=== PATIENT | male | born 1945 | race Caucasian/White ===

== ENCOUNTER 2017-01-04 11:06 | Outpatient (CLI) | payer BC, MEDICARE ==
[~2017-01-04] VITALS: Ht 182.9 cm; Wt 109.1 kg
--- NOTE | ~2017-01-04 | HEMODYNAMI ---
PATIENT:SHERON JAIMES MEDICAL RECORD: [id number] : 47 LOCATION:[facility] ADMISSION DATE: 01/04/17 Generatedon:01/04/201713:41 Patient name: SHERON JAIMES Patient #: [id number] SSN: : 1945 Date of study: 01/04/2017 Page: Of Hemodynamic Procedure Report Patient Data Patient Demographics Procedure consent was obtained First Name: SHERON Gender: Male Last Name: FIONA : 1945 [facility] Initial: SARAN Age: 71 year(s) Patient #: [id number] Race: SSN: [id number] Additional ID: [id number] Contact details Address: [address] State: [place] City: [place] Zip code: [address] Past Medical History Allergies: No known allergies Admission Admission Data Admission Date: 01/04/2017 Admission Time: 11:06 Arrival Date: 01/04/2017 Arrival Time: 0:00 Admit Source: Other Insurance Payor: Medicare, Private health insurance Height (in.): 72 BSA: 2.31 (m2) Height (cm.): 182.88 BMI: 32.82 (kg/m2) Weight (lbs.): 242 Weight (kg.): 109.77 Lab Results Lab Result Date: 01/04/2017 Lab Result Time: 0:00 Biochemistry Name Units Result Min Max BUN mg/dl 16 --(---*)-- 7 18 Creatinine mg/dl 0.9 --(-*--)-- 0.6 1.3 CBC Name Units Result Min Max Hemoglobin g/dl 15.5 --(-*--)-- 13.5 17.5 Procedure Procedure Types Cath Procedure Diagnostic Procedure LHC LHC w/Coronaries Miscellaneous Procedures Moderate Sedation up to 30 minutes Procedure Description Procedure Date Procedure Date: 01/04/2017 Procedure Start Time: 13:19 Procedure End Time: 13:37 Procedure Staff Name Function Hardik Alvarez MD Performing Physician Nikolas Kerr RT Scrub Evelin Abbasi RN Nurse Israel Maya RT Machine Stapler Silvana Argueta RT Monitor Procedure Data Cath Procedure Fluoroscopy Diagnostic fluoroscopy Total fluoroscopy Time: 7.8 time: 7.8 min min Diagnostic fluoroscopy Total fluoroscopy dose: dose: 434.29 mGy 434.29 mGy Contrast Material Contrast Material Type Amount (ml) Isovue 300 102 Entry Location Entry Primary Successful Side Size Upsize Upsize Entry Closure Srinivasan ccessful Closure Location (Fr) 1 (Fr) 2 (Fr) Remarks Device Remarks Radial Right 6 Fr Mechanical artery Short Compression Estimated blood loss: 5 ml Diagnostic catheters Device Type Used For End Catheter Placement Terumo 5Fr Goyo 110cm Procedure catheter Cordis Infinity 5Fr AR Procedure MOD Catheter Cordis Infinity 5Fr AL 1 Procedure catheter Procedure Complications No complications Procedure Medications Medication Administration Route Dosage Oxygen NC 2 l/min Radial Cocktail added to field 1 syringe (Verapomil 2mg/Nitro 400mcg/Heparin 1500units) Heparin Flush Bag added to field 2 bags (1000units/500ml NS) Lidocaine 2% added to field 20 Versed I.V. 1 mg Fentanyl I.V. 50 mcg Versed I.V. 1 mg Fentanyl I.V. 50 mcg Fentanyl I.V. 50 mcg Fentanyl I.V. 50 mcg Radial Cocktail I.A. 1 syringe (Verapomil 2mg/Nitro 400mcg/Heparin 1500units) Hemodynamics Rest BSA: 2.31 (m2) HGB: 15.5 (g/dl) O2 Consumption: Estimated: 252.35 (ml/min) O2 Co nsumption indexed: Estimated:109.24 (ml/min/m) Heart Rate: 53 (bpm) Pressure Samples Time Site Value (mmHg) Purpose Heart Use Rate(bpm) 13:22 LV 99/-4,2 Snapshot 53 Gradients Valve Time Site Site Mean SEP/DFP Peak To Heart Use 1 2 (mmHg) (sec/min) Peak Rate (mmHg) (bpm) Aortic 13:23 LV AO 59 Snapshots Pre Cath Intra NCS Post Cath Vital Signs Time Heart Resp SPO2 NIBP (mmHg) Rhythm Pain Sedation Rate (ipm) (%) Status Level (bpm) 13:05:31 53 18 98 162/89(133) SB 0 (11) 10(A) , No pain 13:10:05 52 15 98 161/84(132) SB 0 (11) 10(A) , No pain 13:14:30 54 15 94 148/82(117) SB 0 (11) 10(A) , No pain 13:18:52 51 13 95 130/69(100) SB 0 (11) 10(A) , No pain 13:23:16 64 14 95 112/50(78) SB 0 (11) 9(A) , No pain 13:27:34 51 15 95 125/66(96) SB 0 (11) 9(A) , No pain 13:31:58 50 15 96 130/64(107) SB 0 (11) 9(A) , No pain 13:36:57 49 16 96 Measuring SB 0 (11) 9(A) , No pain 13:37:04 49 16 98 139/74(107) SB 0 (11) 9(A) , No pain Medications Time Medication Route Dose Verified Delivered Reason Notes Effectiveness by by 13:04:16 Oxygen NC 2 l/min Hardik Evelin Per Antonio Abbasi RN physician 13:04:47 Radial Cocktail added 1 Hardik Hardik used for (Verapomil to syringe Antonio Alvarez MD procedure 2mg/Nitro field 400mcg/Heparin 1500units) 13:04:54 Heparin Flush added 2 bags Hardik Hardik used for Bag to Antonio Alvarez MD procedure (1000units/500ml field NS) 13:05:00 Lidocaine 2% added 20ml Hardik Hardik used for to vial Antonio Alvarez MD procedure field 13:11:24 Versed I.V. 1 mg Hardik Evelin for sedation Antonio Abbasi RN 13:11:30 Fentanyl I.V. 50 mcg Hardik Evelin for sedation Antonio Abbasi RN 13:13:23 Versed I.V. 1 mg Hardik Evelin for sedation Antonio Abbasi RN 13:13:27 Fentanyl I.V. 50 mcg Hardik Evelin for sedation Antonio Abbasi RN 13:16:12 Fentanyl I.V. 50 mcg Hardik Evelin for sedation Antonio Abbasi RN 13:19:26 Fentanyl I.V. 50 mcg Hardik Evelin for sedation Antonio Abbasi RN 13:20:37 Radial Cocktail I.A. 1 Hardik Hardik for (Verapomil syringe Antonio Alvarez MD vasodilation 2mg/Nitro 400mcg/Heparin 1500units) Procedure Log Time Note 12:49:19 Arrival Date: 01/04/2017 12:00:00 AM 12:49:21 Admit Source: Other 12:49:26 Patient Height : 182.88 inches 12:49:50 Patient Weight : 109.77 lbs 12:50:00 Insurance Payor : Private health insurance, Medicare 12:50:16 Procedure type changed to Cath procedure, Diagnostic procedure, LHC, LHC w/Coronaries, Miscellaneous Procedures, Moderate Sedation up to 30 minutes 12:50:21 Diagnostic Cath Status : Elective 12:51:01 Israel DODGE(R) sent for patient. Start room use. 12:51:02 Time tracking: Regular hours 12:51:07 Plan of Care:Hemodynamics will remain stable., Cardiac rhythm will remain stable., Comfort level will be maintained., Respiratory function will remain adequate., Patient/ family verbilizes understanding of procedure., Procedure tolerated without complication., Recovers from procedure without complications.. 12:51:21 Patient received from Outpatients to [facility] Alert and oriented. Tansferred to table in Supine position. 12:51:22 Warm blankets applied, and michelle hugger turned on for patient comfort. 12:51:23 Correct patient and procedure confirmed by team. 12:51:26 Signed procedure consent form obtained from patient. 12:51:45 H&P Date Dictated: 12/29/2016 Within 30 days and on chart., H&P Addendum completed by physician on day of procedure. (MUST COMPLETE FOR ALL OUTPATIENTS). 12:51:47 Pre-procedure instructions explained to patient. 12:51:49 Family in waiting room. 12:51:51 Patient NPO since Midnight. 12:52:00 Patient allergic to No known allergies 12:52:07 Is the patient allergic to Iodine/contrast media? No. 12:52:28 Is patient on blood thinner?Yes 12:52:31 ACC The patient was administered the following blood thiners within the last 24 hours: ACCAspirin 12:52:33 Patient diabetic? No. 12:55:19 Snore? Yes 12:55:21 Sleep apnea? No 12:55:22 Deviated septum? No 12:55:23 Opens mouth fully? Yes 12:55:24 Sticks out tongue? Yes 12:55:30 Dentures? No ? 12:55:36 Patient pain scale 0/10 ?. 12:55:45 IV patent on arrival in right hand with 0.9% NaCl at [facility]. 13:04:06 Vital chart was started 13:04:16 Oxygen 2 l/min NC was given by Evelin Abbasi RN; Per physician; 13:04:47 Radial Cocktail (Verapomil 2mg/Nitro 400mcg/Heparin 1500units) 1 syringe added to field was given by Hardik Alvarez MD; used for procedure; 13:04:54 Heparin Flush Bag (1000units/500ml NS) 2 bags added to field was given by Hardik Alvarez MD; used for procedure; 13:05:00 Lidocaine 2% 20ml vial added to field was given by Hardik Alvarez MD; used for procedure; 13:08:59 Lab Result : BUN 16 mg/dl 13:08:59 Lab Result : Creatinine 0.9 mg/dl 13:08:59 Lab Result : Hemoglobin 15.5 g/dl 13:09:05 Lab results completed and on chart. 13:09:07 Right Radial & Right Groin area was prepped with chlora-prep and draped in sterile fashion 13:09:09 Alarms reviewed by R. N. 13:09:09 Sharps counted by scrub and verified by R.N. 13:11:01 --------ALL STOP TIME OUT------ 13:11:02 Final Timeout: patient, procedure, and site verified with staff and physician. All members of the team are in agreement. 13:11:03 Right Radial & Right Groin site verified by team. 13:11:08 Physical assessment completed. ASA score P 2 - A patient with mild systemic disease as per Hardik Alvarez MD. 13:11:14 Sedation plan: IV Moderate Sedation Versed, Fentanyl 13:11:17 Use device set Radial Dx 13:11:19 Acist Syringe opened to sterile field. 13:11:19 Medline Cath Pack opened to sterile field. 13:11:19 Bag Decanter opened to sterile field. 13:11:20 Terumo 6Fr Slender Glidesheath opened to sterile field. 13:11:20 St Frederic 260cm J .035 wire opened to sterile field. 13:11:21 Acist Hand Control opened to sterile field. 13:11:21 Acist Manifold opened to sterile field. 13:11:24 Versed 1 mg I.V. was given by Evelin Abbasi RN; for sedation; 13:11:30 Fentanyl 50 mcg I.V. was given by Evelin Abbasi RN; for sedation; 13:12:40 Baseline sample Acquired. 13:12:43 ACC Patient presents with Stable Angina CCS Anginal Class 2--Slight limitation of ordinary activity. 13:12:52 Rhythm: sinus rhythm 13:12:54 Full Disclosure recording started 13:12:59 Previous problem with sedation/anesthesia? No ? 13:13:23 Versed 1 mg I.V. was given by Evelin Abbasi RN; for sedation; 13:13:27 Fentanyl 50 mcg I.V. was given by Evelin Abbasi RN; for sedation; 13:16:12 Fentanyl 50 mcg I.V. was given by Evelin Abbasi RN; for sedation; 13:16:25 Cook 21G 4cm Radial Needle opened to sterile field. 13:18:34 Zero performed for pressure channel P1 13:19:03 Procedure started. 13:19:06 Local anesthetic to right radial artery with Lidocaine 2% by Hardik Alvarez MD.INITIAL ACCESS ONLY 13:19:16 Zero performed for pressure channel P1 13:19:26 Fentanyl 50 mcg I.V. was given by Evelin Abbasi RN; for sedation; 13:20:09 A 6 Fr Short sheath was inserted into the Right Radial artery 13:20:37 Radial Cocktail (Verapomil 2mg/Nitro 400mcg/Heparin 1500units) 1 syringe I.A. was given by Hardik Alvarez MD; for vasodilation; 13:20:38 A Terumo 5Fr Goyo 110cm catheter was advanced over the wire and used for Procedure. 13:22:51 LV gram done using EMMANUEL 13:22:53 LV hemodynamics recorded. 13:22:56 Injector settings: Ml/sec: 5, Volume: 15, 13:23:14 EF : 60 % 13:23:44 LCA angiography performed. 13:26:29 Catheter exchanged over wire. 13:26:35 A Cordis Infinity 5Fr AR MOD Catheter was advanced over the wire and used for Procedure. 13:28:49 RCA angiography performed. 13:29:02 Catheter exchanged over wire. 13:30:03 A Cordis Infinity 5Fr AL 1 catheter was advanced over the wire and used for Procedure. 13:30:52 Using the AL 1 to try and get a better veiw of the RCA. 13:31:41 Catheter removed. unable to cannulate vessel. 13:32:31 Medtronic Launcher 5Fr AR 2.0 guide catheter opened to sterile field. 13:33:03 Using the AR 2 to better visualize the RCA. 13:33:07 RCA angiography performed. 13:34:41 Catheter removed. 13:35:06 Terumo TR Band Standard opened to sterile field. 13:35:17 Sheath removed intact; hemostasis achieved with Mechanical Compression to the Right Radial artery. 13:35:19 Procedure ended.(Physican Out) 13:35:30 Fluoroscopy time 07.80 minutes. 13:35:40 Fluoroscopy dose: 434.29 mGy 13:35:40 Flurop Dose total: 434.29 13:35:43 Contrast amount:Isovue 300 102ml. 13:35:45 Sharps counted by scrub and verified by R.N. 13:35:50 TR band inflated with 12cc of air. 13:35:51 Insertion/operative site no bleeding no hematoma. 13:35:59 Post right radial artery:stable, soft, clean and dry 13:36:01 Post Procedure Pulses reassessed and unchanged 13:36:03 Post-procedure physical assessment completed. ASA score P 2 - A patient with mild systemic disease as per Hardik Alvarez MD. 13:36:05 Post procedure rhythm: unchanged. 13:36:09 Estimated blood loss: 5 ml 13:36:11 Post procedure instruction explained to patient.Patient verbalizes understanding. 13:36:11 Patient needs reinforcement of post procedure teaching. 13:36:51 Procedure and supply charges have been captured, reviewed, submitted and are correct. 13:36:54 Procedure Complication : No complications 13:37:33 Vital chart was stopped 13:37:35 See physician's report for complete and final results. 13:37:37 Report given to Pre/Post Procedure Room. 13:37:40 Patient transfered to Pre/Post Procedure Room with Stretcher. 13:37:45 Procedure ended. 13:37:45 Full Disclosure recording stopped 13:38:16 LV Function : Normal 13:38:20 EF : 60 % 13:38:25 End room use (Document Last) Device Usage Item Name Manufacture Quantity Catalog Hospital Part Current Minimal Lot# / Number Charge Number Stock Stock Serial# Code Acist Acist 1 29671 [id number] 338260 748484 20 Syringe Medical Systems Inc Medline Cardinal 1 [id number] 011584 53020 355204 5 Cath Pack Health Bag Microtek 1 2002S [id number] 15877 516188 5 Decanter Medical Inc. Terumo 6Fr Terumo 1 [id number] 571553 948918 234002 [address] Frederic 1 568651 204679 939729 620371 30 260cm J .035 wire Acist Hand Acist 1 47267 011187 219031 418984 5 Control Medical Systems Inc Acist Acist 1 90114 082436 842853 347704 5 Manifold Medical Systems Inc Cook 21G Cook Medical 1 [id number] 545310 269844 5 4cm Radial Needle Terumo 5Fr Terumo 1 40-8775 045832 936460 073495 5 Goyo 110cm catheter Cordis Cardinal 1 [id number] 821738 259311 505378 15 Infinity Health 5Fr AR MOD Catheter Cordis Cardinal 1 [id number] 347058 652598 811028 15 Infinity Health 5Fr AL 1 catheter Medtronic Medtronic 1 [id number] 192345 985920 176844 1 Launcher 5Fr AR 2.0 guide catheter Terumo TR Terumo 1 [id number] 775811 163740 999817 40 Band Standard Signature Audit [place] Stage Time Signature Unsigned Intra-Procedure 01/04/2017 Nikolas Kerr 1:41:18 PM RT(R) Signatures Monitor : Silvana Argueta Signature : RT Date : Time : [facility] [address] [place] [address]
[~2017-01-04 11:06] MED LIST: ASPIRIN EC81 M1 PO; BYSTOLIC5 MG PO; CARDIZEM CD240 MG PO; CLARITIN 10 MG10 MG PO; HYZAAR 100-25 T1 TAB PO; KLOR-CON 1010 MEQ PO; PLAVIX75 MG PO; PRILOSEC20 MG PO
[2017-01-04] MEDS ORDERED: BYSTOLIC10 MG PO (11:51)
[2017-01-04 11:56] VITALS: BP 152/69; Ht 182.9 cm; Wt 109.1 kg
[2017-01-04 12:02] LABS: BASOPHILS 0.5 % (0.0-2.0); EOSINOPHILS 4.1 % (0-7); HEMATOCRIT 43.3 % (42.0-54.0); HEMOGLOBIN 15.5 g/dL (13.5-17.5); IMMATURE GRANULOCYTES 0.3 % (0-5); MCH 32.8 pg (26.0-34.0); MCHC 35.8 g/dL (31.0-37.0); MCV 91.5 fL (80.0-100.0); MONOCYTES 12.7 % (2-11); NEUTROPHILS 49.4 % (40-80); PLATELET COUNT 132 10x3/uL (130-400); RBC 4.73 10x6/uL (4.20-6.10); RDW 12.4 % (11.5-14.5); WBC 6.6 10x3/uL (4.8-10.8)
[2017-01-04 12:14] LABS: CALC OSMOLALITY 273 mosm/kg (275-300); CALCIUM 8.9 mg/dL (8.5-10.1); CHLORIDE - SERUM 99 mmol/L (98-107); CREATININE - SERUM 0.9 mg/dL (0.6-1.3); GLUCOSE 116 mg/dL (74-106); POTASSIUM - SERUM 4.1 mmol/L (3.5-5.1); SODIUM 136 mmol/L (136-145); UREA NITROGEN 16 mg/dL (7-18); eGFR NON AFRICAN AMERICAN 89 mL/min (90-120)
--- NOTE | 2017-01-04 16:46 | NUR ---
1405- TR BAND INTACT 1435- TR BAND REMAINS UNCHANGED
--- NOTE | 2017-02-08 08:17 | OP ---
PATIENT NAME: SHERON JAIMES MEDICAL RECORD: [id number] :47 LOCATION:D.CAT ADMISSION DATE: SURGEON: IMMANUEL HASSAN M.D. DATE OF OPERATION: 01/04/2017 Catheterization Report REFERRING PHYSICIAN: Dr. Jen Pruitt. PROCEDURES PERFORMED: 1. Selective coronary angiography. 2. Left heart catheterization with ventriculogram. INDICATION: A 71-year-old gentleman with history of multivessel coronary artery disease presents with recurrent angina. EQUIPMENT USED: A 5-Frisian Goyo catheter, AR2 catheter. TECHNIQUE: A 6-Frisian sheath was inserted in retrograde fashion in the right radial artery. Next, selective coronary angiography was performed in standard view using 5-Frisian Goyo catheter and AR2 catheters. Left heart catheterization was performed using the Goyo catheter. CORONARY ANATOMY: 1. Left main: Left main trunk is moderate in caliber. It gives rise to the LAD and circumflex. There is no obstruction. 2. LAD: This is a moderate caliber vessel extending to the apex. The mid vessel has been stented. The stent is widely patent. There are mild irregularities noted throughout the LAD, but nothing worse than 30%. 3. Circumflex: This vessel is moderate in caliber. The first lateral branch has been stented. Stents are widely patent. Random vessel has mild irregularities, but again nothing worse than 30%. 4. Right coronary: This vessel is moderate in caliber and dominant. The distal vessel demonstrates a smooth 30% stenosis before the bifurcation. 5. Left ventricle: Left ventricle is normal in size and function. No wall motion abnormalities are seen. Estimated ejection fraction is 60%. IMPRESSION: 1. Patent stents in the circumflex and LAD without evidence of restenosis. 2. Normal LV function. RECOMMENDATIONS: I may consider a Cardiolite stress test. This patient is having classes of angina, but there does not appear to be any significant stenosis noted on today's angiogram. TRANSINT:[id number] Voice Confirmation ID: [id number] DOCUMENT ID: [id number] OPERATIVE REPORT [id number] SHERON JAIMES IMMANUEL HASSAN M.D. at 0817 CC: [id number] DICTATION DATE: 01/04/17 1341 MARINE DIESEL MECHANIC: 01/04/171937 DEP CLI 01/04/17 [facility] [address] [id number]
== END 2017-01-04 16:20 | disposition home or self-care (01) ==
LOC: D.CATH 11:06
PROVIDERS: Internal Medicine Cardiovascular Disease
DX: I25.119 Atherosclerotic heart disease of native coronary artery with unspecified angina pectoris (principal); Z95.5 Presence of coronary angioplasty implant and graft

== ENCOUNTER → 2019-04-06 08:09 | Outpatient (CLI) | payer MEDICARE, BC ==
[2017-01-04 11:56] VITALS: BMI 32.6
[~2019-04-06 08:09] MED LIST changes: +BYSTOLIC10 MG PO
== END | disposition home or self-care (01) ==
LOC: D.HCCARDIO 08:09
PROVIDERS: ATTEND Internal Medicine Cardiovascular Disease
DX: I25.119 Atherosclerotic heart disease of native coronary artery with unspecified angina pectoris (principal)

== ENCOUNTER 2019-04-26 06:04 | Outpatient (CLI) | payer BC, MEDICARE ==
[~2019-04-26] VITALS: Ht 182.9 cm; Wt 105.9 kg
--- NOTE | ~2019-04-26 | HEMODYNAMI ---
PATIENT:SHERON JAIMES MEDICAL RECORD: [id number] : 47 LOCATION:[facility] ADMISSION DATE: 04/26/19 Generatedon:04/26/20198:35 Patient name: SHERON JAIMES Patient #: [id number] SSN: : 1945 Date of study: 04/26/2019 Page: Of Hemodynamic Procedure Report Patient Data Patient Demographics Procedure consent was obtained First Name: SHERON Gender: Male Last Name: FIONA : 1945 [facility] Initial: SARAN Age: 73 year(s) Patient #: [id number] Race: SSN: [id number] Additional ID: [id number] Contact details Address: [address] State: [place] City: [place] Zip code: [address] Past Medical History Allergies: No known allergies Admission Admission Data Admission Date: 04/26/2019 Admission Time: 6:04 Procedure Procedure Types Cath Procedure Diagnostic Procedure C [facility] w/Coronaries Aortic Root Angiography Procedure Description Procedure Date Procedure Date: 04/26/2019 Procedure Start Time: 8:04 Procedure End Time: 8:31 Procedure Staff Name Function Hardik Alvarez MD Performing Physician Lor Melendrez RN Nurse Arlene Mendenhall RT Monitor Efrain Gracia RT Scrub Procedure Data Cath Procedure Fluoroscopy Diagnostic fluoroscopy Total fluoroscopy Time: 7.1 time: 7.1 min min Diagnostic fluoroscopy Total fluoroscopy dose: dose: 1335 mGy 1335 mGy Contrast Material Contrast Material Type Amount (ml) Isovue 370 117 Entry Location Entry Primary Successful Side Size Upsize Upsize Entry Closure Srinivasan ccessful Closure Location (Fr) 1 (Fr) 2 (Fr) Remarks Device Remarks Radial Right 6 Fr Mechanical artery Short Compression Femoral Right 5 Fr Exoseal artery Estimated blood loss: 5 ml Diagnostic catheters Device Type Used For End Catheter Placement DIAGNOSTIC Goyo 110cm Multi-vessel 5Fr catheter ([id number]) Angiography DIAGNOSTIC [place] 110cm 5 Multi-vessel Fr catheter (964507) Angiography DIAGNOSTIC JL 4.0 5Fr Left Coronary catheter ([id number]) Angiography DIAGNOSTIC JL 5 5Fr Left Coronary catheter (078843T) Angiography DIAGNOSTIC 3DRC 5Fr Right Coronary catheter (571306H) Angiography DIAGNOSTIC Pigtail 5Fr LV Angiography catheter (060886K) DIAGNOSTIC AL1 5Fr Right Coronary catheter (055344J) Angiography Procedure Complications No complications Procedure Medications Medication Administration Route Dosage 0.9% NaCl I.V. 100 ml/hr Oxygen etCO2 Nasal cannula 2 l/min Lidocaine 2% added to field 20 Heparin Flush Bag added to field 2 bags (1000units/500ml NS) Radial Cocktail added to field 1 syringe (Verapamil 2mg/Nitro 400mcg/Heparin 1500units) Versed I.V. 2 mg Fentanyl I.V. 50 mcg Versed I.V. 2 mg Fentanyl I.V. 50 mcg Hemodynamics Rest Heart Rate: 58 (bpm) Pressure Samples Time Site Value (mmHg) Purpose Heart Use Rate(bpm) 8:08 LV 129/5,14 Snapshot 58 Gradients Valve Time Site Site Mean SEP/DFP Peak To Heart Use 1 2 (mmHg) (sec/min) Peak Rate (mmHg) (bpm) Aortic 8:09 LV AO 64 Snapshots Pre Cath Intra NCS Post Cath Vital Signs Time Heart Resp SPO2 etCO2 NIBP (mmHg) Rhythm Pain Sedation Rate (ipm) (%) (mmHg) Status Level (bpm) 7:50:53 57 16 97 38.7 194/95(158) SB 0 (11) 10(A) , No pain 7:55:30 58 19 97 38.7 190/88(155) SB 0 (11) 10(A) , No pain 8:00:04 54 17 98 21.5 172/83(135) SB 0 (11) 10(A) , No pain 8:04:34 53 16 98 28.2 167/80(133) SB 0 (11) 10(A) , No pain 8:08:50 58 13 97 15.6 138/77(113) SB 0 (11) 9(A) , No pain 8:13:13 53 14 98 14.1 144/78(109) SB 0 (11) 9(A) , No pain 8:17:37 53 16 97 15.6 165/81(128) SB 0 (11) 9(A) , No pain 8:22:03 51 14 98 29 148/74(112) SB 0 (11) 9(A) , No pain 8:26:25 51 15 98 26.8 126/95(113) SB 0 (11) 10(A) , No pain 8:31:47 50 13 94 26 154/75(122) SB 0 (11) 10(A) , No pain Medications Time Medication Route Dose Verified Delivered Reason Notes Ef fectiveness by by 7:50:55 0.9% NaCl I.V. 100 Hardik Lor used for ml/hr Antonio Melendrez card tender 7:51:02 Oxygen etCO2 2 l/min Hardik Lor used for Nasal Antonio Melendrez procedure cannula RN 7:51:08 Lidocaine 2% added 20ml Hardik Hardik for local to vial Antonio Alvarez MD anesthetic field 7:51:12 Heparin Flush added 2 bags Hardik Hardik used for Bag to Antonio Alvarez MD procedure (1000units/500ml field NS) 7:51:27 Radial Cocktail added 1 Hardik Hardik used for (Verapamil to syringe Antonio Alvarez MD procedure 2mg/Nitro field 400mcg/Heparin 1500units) 7:59:28 Versed I.V. 2 mg Hardik Lor for Antonio Melendrez sedation RN 7:59:40 Fentanyl I.V. 50 mcg Hradik Lor for Antonio Melendrez sedation RN 8:05:50 Versed I.V. 2 mg Hardik Lor for Antonio Melendrez sedation RN 8:05:54 Fentanyl I.V. 50 mcg Hardik Lor for Antonio Melendrez sedation heat treater helper Log Time Note 7:19:42 Diagnostic Cath Status : Elective 7:20:32 Lor Melendrez RN sent for patient. Start room use. 7:20:32 Time tracking: Regular hours (M-F 7:00 - 5:00) 7:20:37 Plan of Care:Hemodynamics will remain stable., Cardiac rhythm will remain stable., Comfort level will be maintained., Respiratory function will remain adequate., Patient/ family verbilizes understanding of procedure., Procedure tolerated without complication., Recovers from procedure without complications.. 7:43:07 Patient received from Pre/Post Procedure Room to [facility] 2 Alert and oriented. Tansferred to table in Supine position. 7:43:08 Warm blankets applied, and michelle hugger turned on for patient comfort. 7:43:09 Correct patient and procedure confirmed by team. 7:43:10 Signed procedure consent form obtained from patient. 7:43:31 ECG and BP/O2 sat monitors applied to patient. 7:48:07 Vital chart was started 7:50:55 0.9% NaCl 100 ml/hr I.V. was administered by Lor Melendrez RN; used for procedure; 7:51:02 Oxygen 2 l/min etCO2 Nasal cannula was administered by Lor Melendrez RN; used for procedure; 7:51:08 Lidocaine 2% 20ml vial added to field was administered by Hardik Alvarez MD; for local anesthetic; 7:51:12 Heparin Flush Bag (1000units/500ml NS) 2 bags added to field was administered by Hardik Alvarez MD; used for procedure; 7:51:27 Radial Cocktail (Verapamil 2mg/Nitro 400mcg/Heparin 1500units) 1 syringe added to field was administered by Hardik Alvarez MD; used for procedure; 7:56:19 Baseline sample Acquired. 7:56:24 Rhythm: sinus rhythm 7:56:26 Full Disclosure recording started 7:56:30 H&P Date Dictated: 04/26/2019 Within 30 days and on chart., H&P Addendum completed by physician on day of procedure. (MUST COMPLETE FOR ALL OUTPATIENTS). 7:56:32 Pre-procedure instructions explained to patient. 7:56:32 Pre-op teaching completed and patient verbalized understanding. 7:56:34 Family in waiting room. 7:56:35 Patient NPO since Midnight. 7:56:37 Is the patient allergic to Iodine/contrast media? No. 7:56:38 Was the patient premedicated? No 7:56:39 Is patient on blood thinner?No 7:58:12 Patient diabetic? No. 7:58:15 Previous problem with sedation/anesthesia? No ? 7:58:18 Snore? Yes 7:58:19 Sleep apnea? No 7:58:20 Deviated septum? No 7:58:21 Opens mouth fully? Yes 7:58:22 Sticks out tongue? Yes 7:58:23 Airway obstruction? No ? 7:58:26 Dentures? No ? 7:58:29 Pre procedure: right dorsailis pedis pulse 2+ Normal; easily identifiable; not easily obliterated 7:58:31 Pre procedure: left dorsailis pedis pulse 2+ Normal; easily identifiable; not easily obliterated 7:58:32 Patient pain scale 0/10 ?. 7:58:37 IV patent on arrival in left forearm with 0.9% NaCl at O. 7:58:39 Lab results completed and on chart. 7:58:44 Right Radial & Right Groin area was prepped with chlora-prep and draped in sterile fashion 7:58:45 Alarms reviewed by R. N. 7:58:45 Sharps counted by scrub and verified by R.N. 7:58:46 Physician arrived 7:58:46 --------ALL STOP TIME OUT------ 7:58:47 Final Timeout: patient, procedure, and site verified with staff and physician. All members of the team are in agreement. 7:58:49 Right Radial & Right Groin site verified by team. 7:58:53 Maximum allowable Isovue 370 dose 300ml. Physician notified. (300ml for normal creatinines. For patients with creatinine of 1.7 or higher multiply weight(kg) x 5 divided by creatinine.) 7:58:56 Fire Safety Assessment: A--An alcohol-based skin anteseptic being used preoperatively., C--Open oxygen or nitrous oxide is being used., D--An ESU, laser, or fiber-optic light is being used. 7:58:59 Physical assessment completed. ASA score P 2 - A patient with mild systemic disease as per Hardik Alvarez MD. 7:59:02 Sedation plan: IV Moderate Sedation Medication:Versed, Fentanyl 7:59:28 Versed 2 mg I.V. was administered by Lor Melendrez RN; for sedation; 7:59:40 Fentanyl 50 mcg I.V. was administered by Lor Melendrez RN; for sedation; 8:03:50 Zero performed for pressure channel P1 8:03:58 Zero performed for pressure channel P1 8:04:05 Zero performed for pressure channel P1 8:04:13 Procedure started. 8:04:17 Local anesthetic to right radial artery with Lidocaine 2% by Hardik Alvarez MD.INITIAL ACCESS ONLY 8:04:35 Use device set Radial Dx or PCI 8:04:36 ACIST Syringe (62460) opened to sterile field. 8:04:37 Medline Cath Pack ([id number]) opened to sterile field. 8:04:37 Bag Decanter (2002) opened to sterile field. 8:04:38 DIAGNOSTIC WIRE .035 260cm J wire (942735) opened to sterile field. 8:04:38 ACIST Hand Control (92142) opened to sterile field. 8:04:39 ACIST Manifold (64517) opened to sterile field. 8:04:39 Tegaderm 4 x 4 (1626W) opened to sterile field. 8:04:40 MBrace Wrist Support (659411070) opened to sterile field. 8:04:40 NEEDLE Cook 21G 4cm Radial (U76072) opened to sterile field. 8:04:41 SHEATH 6FR Slender (80-6360) opened to sterile field. 8:05:38 A 6 Fr Short sheath was inserted into the Right Radial artery 8:05:50 Versed 2 mg I.V. was administered by Lor Melendrez RN; for sedation; 8:05:54 Fentanyl 50 mcg I.V. was administered by Lor Melendrez RN; for sedation; 8:06:36 A DIAGNOSTIC Goyo 110cm 5Fr catheter (584386) was advanced over the wire and used for Multi-vessel Angiography. 8:08:49 LV hemodynamics recorded. 8:08:50 LV gram done using EMMANUEL 8:08:53 Injector settings: Ml/sec: 5, Volume: 15, 8:09:08 EF : 55 % 8:11:03 Catheter removed. 8:12:11 Catheter removed. unable to cannulate vessel. 8:12:15 A DIAGNOSTIC [place] 110cm 5 Fr catheter (243855) was advanced over the wire and used for Multi-vessel Angiography. 8:13:56 Catheter removed. unable to cannulate vessel. 8:14:04 Local anesthetic to right femoral artery with Lidocaine 2% by Hardik Alvarez MD.ADDITIONAL ACCESS 8:15:51 A 5 Fr sheath was inserted into the Right Femoral artery 8:16:27 A DIAGNOSTIC JL 4.0 5Fr catheter (615949B) was advanced over the wire and used for Left Coronary Angiography. 8:18:54 Catheter removed. unable to cannulate vessel. 8:19:11 A DIAGNOSTIC JL 5 5Fr catheter (127275J) was advanced over the wire and used for Left Coronary Angiography. 8:19:57 LCA angiography performed. 8:19:59 Injector settings: Ml/sec: 3, Volume: 6, 8:21:01 Catheter removed. 8:21:17 A DIAGNOSTIC 3DRC 5Fr catheter (473634E) was advanced over the wire and used for Right Coronary Angiography. 8:22:27 Catheter removed. unable to cannulate vessel. 8:24:16 A DIAGNOSTIC AL1 5Fr catheter (005728W) was advanced over the wire and used for Right Coronary Angiography. 8:24:22 RCA angiography performed. 8:24:25 Injector settings: Ml/sec: 3, Volume: 6, 8:24:56 Catheter removed. 8:25:12 A DIAGNOSTIC Pigtail 5Fr catheter (701579N) was advanced over the wire and used for LV Angiography. 8:27:07 Aortic Root visualized 8:27:37 Injector settings: Ml/sec: 10, Volume: 30, 8:27:39 Catheter removed. 8:27:55 EXOSEAL 5Fr (EX500) opened to sterile field. 8:28:02 TR BAND Large ([id number]) opened to sterile field. 8:28:34 Sheath removed intact; hemostasis achieved with Mechanical Compression to the Right Radial artery. 8:28:39 Sheath removed intact; hemostasis achieved with Exoseal to the Right Femoral artery. 8:28:41 Procedure ended.(Physican Out) 8::59 Fluoroscopy time 07.10 minutes. 8:29:03 Flurop Dose total: 1335 8:29:03 Fluoroscopy dose: 1335 mGy 8:29:08 Contrast amount:Isovue 370 117ml. 8:29:10 Sharps counted by scrub and verified by R.N. 8:29:13 TR band inflated with 10cc of air. 8:29:15 Insertion/operative site no bleeding no hematoma. 8:29:26 Post right radial artery:stable 8:29:28 Post Procedure Pulses reassessed and unchanged 8:29:31 Post procedure rhythm: unchanged. 8:30:23 Estimated blood loss: 5 ml 8:30:25 Post procedure instruction explained to patient.Patient verbalizes understanding. 8:30:25 Patient needs reinforcement of post procedure teaching. 8:30:49 Procedure type changed to Cath procedure, Diagnostic procedure, LHC, LHC w/Coronaries, Aortic Root Angiography 8:30:52 Procedure and supply charges have been captured, reviewed, submitted and are correct. 8:30:57 Procedure Complication : No complications 8:30:59 Vital chart was stopped 8:31:00 See physician's report for complete and final results. 8:31:04 Report given to Pre/Post Procedure Room. 8:31:07 Patient transfered to Pre/Post Procedure Room with Stretcher. 8:31:10 Procedure ended. 8:31:10 Full Disclosure recording stopped 8:31:14 End room use (Document Last) Device Usage Item Name Manufacture Quantity Catalog Hospital Part Current Minimal Lot# / Number Charge Number Stock Stock Serial# Code ACIST Acist 1 30469 035076 626668 342184 20 Syringe Medical (29709) Systems Inc Medline Medline 1 [id number] 933794 12070 060684 5 Cath Pack ([id number]) Bag Microtek 1 2001S 973055 24683 513398 5 Decanter Medical Inc. (2001S) DIAGNOSTIC [facility] 1 602497 376709 981128 228044 30 WIRE .035 260cm J wire (748327) ACIST Hand Acist 1 80413 269994 953161 149948 5 Control Medical (50185) Systems Inc ACIST Acist 1 77278 550666 120967 739136 5 Manifold Medical (56513) Systems Inc Tegaderm 4 3M 1 1626W 046892 859549 090810 5 x 4 (1626W) MBrace Advanced 1 140-0250-00 618412 87751 126189 5 Wrist Vascular Support Dynamics (480067452) NEEDLE MyWerx Medical 1 Z20194 638413 800495 493950 5 21G 4cm Radial (N89791) SHEATH 6FR Terumo 1 [id number] 559390 758292 617593 5 Slender (80-1060) DIAGNOSTIC Terumo 1 40-5023 131438 747464 298461 5 Goyo 110cm 5Fr catheter (215410) DIAGNOSTIC Terumo 1 40-5013 549845 388712 656694 5 [place] 110cm 5 Fr catheter (817688) DIAGNOSTIC Cardinal 1 818977E 656223 396646 929117 10 JL 4.0 5Fr Health catheter (425963T) DIAGNOSTIC Cardinal 1 654969Z 761854 013795 843066 5 JL 5 5Fr Health catheter (756684R) DIAGNOSTIC Cardinal 1 870398B 205241 140153 313666 9 3DRC 5Fr Health catheter (268684E) DIAGNOSTIC Cardinal 1 839456E 684027 553952 565303 5 Pigtail 5Fr Health catheter (264058H) EXOSEAL 5Fr Cardinal 1 EX500 170470 710866 596132 10 (EX500) Health TR BAND Terumo 1 [id number] 951585 965431 866954 40 Large ([id number]) DIAGNOSTIC Cardinal 1 641178M 823740 488152 582391 15 AL1 5Fr Health catheter (926981C) Signature Audit [place] Stage Time Signature Unsigned Intra-Procedure 04/26/2019 Arlene Mendenhall 8:35:25 AM RT(R) Signatures Monitor : Arlene Mendenhall RT Signature : Date : Time : [id number] [place] [address]
[2019-04-26] MEDS ORDERED: CARTIA XT240 MG PO (06:26)
[2019-04-26] MEDS ORDERED: LIPITOR10 MG PO (06:27)
[2019-04-26 06:39] VITALS: BP 175/80; Ht 182.9 cm; Wt 105.9 kg
[2019-04-26 07:14] LABS: CALC OSMOLALITY 269 mosm/kg (275-300); CALCIUM 8.8 mg/dL (8.5-10.1); CARBON DIOXIDE 27.9 mmol/L (21.0-32.0); CHLORIDE - SERUM 99 mmol/L (98-107); CREATININE - SERUM 0.9 mg/dL (0.6-1.3); GLUCOSE 114 mg/dL (74-106); POTASSIUM - SERUM 3.9 mmol/L (3.5-5.1); SODIUM 134 mmol/L (136-145); UREA NITROGEN 16 mg/dL (7-18); eGFR NON AFRICAN AMERICAN 88 mL/min (90-120)
[2019-04-26 08:03] LABS: BASOPHILS 0.1 % (0-2); EOSINOPHILS 4.8 % (0-7); HEMATOCRIT 42.9 % (42.0-54.0); HEMOGLOBIN 15.5 g/dL (13.5-17.5); IMMATURE GRANULOCYTES 0.6 % (0-5); LYMPHOCYTES 37.7 % (15-50); MCH 32.1 pg (26.0-34.0); MCHC 36.1 g/dL (31.0-37.0); MCV 88.8 fL (80.0-100.0); MEAN PLATELET VOLUME 9.8 fL (7.4-10.4); MONOCYTES 11.3 % (2-11); NEUTROPHILS 45.5 % (40-80); PLATELET COUNT 148 10x3/uL (130-400); RBC 4.83 10x6/uL (4.20-6.10); WBC 7.1 10x3/uL (4.8-10.8)
--- NOTE | 2019-04-26 09:00 | NUR ---
PT IS ALERT, DENIES ANY C/O. 5 FR EXOSEAL IS CDI TO RIGHT GROIN, AREA IS SOFT AND NONTENDER. PEDAL PULSES PALPABLE. TR BAND IS CDI TO RIGHT WRIST. HOB IS FLAT. SINUS JOSE AT 50, DENIES ANY C/O CHEST PAIN. RESP WITH EASE ON O2 AT 2PM VIA NC.
--- NOTE | 2019-04-26 09:35 | NUR ---
PT SLEEPING INTERMITTENTLY, DRESSING CDI TO RIGHT GROIN, PEDAL PULSES PALPABLE. TR BAND IS CDI TO RIGHT WRIST, FINGERS WARM AND CAP REFILL IS BRISK. HOB IS FLAT. SINUS JOSE AT 49, DENIES ANY C/O CHEST PAIN. HOB IS FLAT, FAMILY AT BEDSIDE.
--- NOTE | 2019-04-26 09:49 | NUR ---
ATTEMPTED WEANING AIR FROM TR BAND WITH OOZING NOTED WITH 2 CC WEANED. AIR REINSTILLED AND OOZING CEASED. FINGERS WARM AND CAP REFILL IS BRISK. 5 FR EXOSEAL IS CDI TO RIGHT GROIN, AREA IS SOFT AND NONTENDER. PEDAL PULSES PALPABLE. HOB IS FLAT, PT DENIES ANY C/O OR NEEDS AT THIS TIME.
--- NOTE | 2019-04-26 10:02 | NUR ---
HOB ELEVATED 30 DEGREES, SANDWICH AND PO FLUIDS SERVED. NO BLEEDING AT TR BAND OR EXOSEAL SITES.
--- NOTE | 2019-04-26 10:19 | NUR ---
DRESSING TO RIGHT GROIN REMAINS CDI, PEDAL PULSES PALPABLE. HOB FULLY ELEVATED. PT EAING SANDWICH AND SIPPING ON PO FLUIDS WITH NO C/O NAUSEA. 3 CC OF AIR WEANED FROM TR BAND WITH NO BLEEDING NOTED. FINGERS WARM AND CAP REFILL IS BRISK. DC INSTRUCTIONS REVIEWED WITH PT AND WHO VERBALIZE UNDERSTANDING.
--- NOTE | 2019-04-26 10:25 | NUR ---
3 CC OF AIR WEANED FROM TR BAND WITH NO BLEEDING NOTED.
--- NOTE | 2019-04-26 10:37 | NUR ---
3 CC OF AIR WEANED FROM TR BAND WITH NO BLEEDING NOTED. DRESSING IS CDI TO RIGHT GROIN, AREA IS SOFT AND NONTENDER. PEDAL PULSES PALPABLE. PT IS SITTING UP IN BED, DENIES ANY C/O. AT BEDSIDE.
--- NOTE | 2019-04-26 10:47 | NUR ---
IV DC'D WITH CATH INTACT. DRESSING CDI TO RIGHT GROIN, ALL AIR WEANED FROM TR BAND WITH NO BLEEDING NOTED.
--- NOTE | 2019-04-26 11:22 | NUR ---
1100 TR BAND REMOVED AND 2X2, TEAGDERM PLACED TO SITE. PT DRESSING FOR DC TO HOME WITH ASSIST. DENIES ANY C/O. 1115 DRESSING REMAINS CDI TO RIGHT WRIST, WRIST IMMOBILIZER IN PLACE. PT HAS VOIDED 800 CC CLEAR YELLOW URINE TO URINAL, DENIES ANY C/O. PT ESCORTED TO PRIVATE AUTO VIA WC BY NURSE WITH DRIVING HIM HOME.
== END 2019-04-26 11:15 | disposition home or self-care (01) ==
LOC: D.CATH 06:04
PROVIDERS: ATTEND Internal Medicine Cardiovascular Disease
DX: I25.119 Atherosclerotic heart disease of native coronary artery with unspecified angina pectoris (principal); R42 Dizziness and giddiness; R06.00 Dyspnea, unspecified; I10 Essential (primary) hypertension; Z01.812 Encounter for preprocedural laboratory examination

== ENCOUNTER → 2019-12-05 10:02 | Outpatient (CLI) | payer BC, MEDICARE ==
[2019-04-26 06:39] VITALS: BMI 31.6
[~2019-12-05 10:02] MED LIST changes: +CARTIA XT240 MG PO; +LIPITOR10 MG PO
== END | disposition home or self-care (01) ==
LOC: D.HCCECHO 10:02
PROVIDERS: ATTEND Family Medicine
DX: I25.10 Atherosclerotic heart disease of native coronary artery without angina pectoris (principal)

== ENCOUNTER → 2020-05-28 08:25 | Outpatient (CLI) | payer MEDICARE, BC ==
[2019-04-26 06:39] VITALS: BMI 31.6
== END | disposition home or self-care (01) ==
LOC: D.HCCARDIO 08:25
PROVIDERS: ATTEND Internal Medicine Cardiovascular Disease
DX: I25.119 Atherosclerotic heart disease of native coronary artery with unspecified angina pectoris (principal)

== ENCOUNTER 2020-06-26 06:32 | Day surgery (SDC) | payer MEDICARE, BC ==
[~2020-06-26] VITALS: Ht 182.9 cm; Wt 112.3 kg
--- NOTE | ~2020-06-26 | HEMODYNAMI ---
PATIENT:SHERON JAIMES MEDICAL RECORD: [id number] : 47 LOCATION:[facility] ADMISSION DATE: 06/26/20 Generatedon:06/26/20209:25 Patient name: SHERON JAIMES Patient #: [id number] SSN: : 1945 Date of study: 06/26/2020 Page: Of Hemodynamic Procedure Report Patient Data Patient Demographics Procedure consent was obtained First Name: SHERON Gender: Male Last Name: FIONA : 1945 [facility] Initial: SARAN Age: 74 year(s) Patient #: [id number] Race: SSN: [id number] Additional ID: [id number] Contact details Address: [address] State: [place] City: [place] Zip code: [address] Past Medical History Allergies Allergen Reaction Date Comments Reported Other allergy 06/26/2020 [facility] Admission Admission Data Admission Date: 06/26/2020 Admission Time: 6:32 Arrival Date: 06/26/2020 Arrival Time: 0:00 Height (in.): 72 BSA: 2.33 (m2) Height (cm.): 182.88 BMI: 33.49 (kg/m2) Weight (lbs.): 246.92 Weight (kg.): 112 Lab Results Lab Result Date: 06/26/2020 Lab Result Time: 0:00 Biochemistry Name Units Result Min Max BUN mg/dl 13 --(--*-)-- 7 18 Creatinine mg/dl 0.9 --(-*--)-- 0.6 1.3 eGFR ml/min 88.45089 -*(----)-- 90 120 NONAFRICAN CBC Name Units Result Min Max Hematocrit % 42.9 --(*---)-- 42 54 Hemoglobin g/dl 15.5 --(-*--)-- 13.5 17.5 Procedure Procedure Types Cath Procedure Diagnostic Procedure LHC LHC w/Coronaries Sedation Charges Moderate Sedation up to 30 minutes PCI Procedure Coronary Stent Coronary Stent Initial Hemochron ACT Test Procedure Description Procedure Date Procedure Date: 06/26/2020 Procedure Start Time: 8:52 Procedure End Time: 9:23 Procedure Staff Name Function Hardik Alvarez MD Performing Physician Amber Dutton RT Monitor Lor Melendrez RN Nurse Silvana Argueta RT Scrub Procedure Data Cath Procedure Fluoroscopy Diagnostic fluoroscopy Total fluoroscopy Time: 0 time: 0 min min Diagnostic fluoroscopy Total fluoroscopy dose: dose: 1745 mGy 1745 mGy Contrast Material Contrast Material Type Amount (ml) Isovue 300 113 Entry Location Entry Primary Successful Side Size Upsize Upsize Entry Closure Succes sful Closure Location (Fr) 1 (Fr) 2 (Fr) Remarks Device Remarks Femoral Right 5 Fr 6 Fr Exoseal artery Short Estimated blood loss: 10 ml Diagnostic catheters Device Type Used For End Catheter Placement MULTIPACK JL 4.0 5Fr Left Coronary catheter Angiography DIAGNOSTIC JL 5 5Fr Left Coronary catheter ([id number]) Angiography MULTIPACK 3DRC 5Fr Right Coronary catheter Angiography MULTIPACK Pigtail 5 Fr LV Angiography catheter Procedure Complications No complications Procedure Medications Medication Administration Route Dosage 0.9% NaCl I.V. 100 ml/hr Oxygen etCO2 Nasal cannula 2 l/min Lidocaine 2% added to field 20 Heparin Flush Bag added to field 2 bags (1000units/500ml NS) Versed I.V. 2 mg Fentanyl I.V. 50 mcg Versed I.V. 2 mg Fentanyl I.V. 50 mcg Heparin Bolus I.V. 67419 units Plavix P.O. 600 mg Hemodynamics Rest BSA: 2.33 (m2) HGB: 15.5 (g/dl) O2 Consumption: Estimated: 253.71 (ml/min) O2 Co nsumption indexed: Estimated:108.89 (ml/min/m) Heart Rate: 53 (bpm) Pressure Samples Time Site Value (mmHg) Purpose Heart Use Rate(bpm) 9:03 LV 110/13,32 Snapshot 45 9:04 AO 104/52(72) Pullback 49 9:04 LV 111/4,25 Pullback 49 Gradients Valve Time Site 1 Site 2 Mean SEP/DFP Peak To Heart Use (mmHg) (sec/min) Peak Rate (mmHg) (bpm) Aortic 9:04 LV AO 12 4 7 49 111/4,25 104/52(72) Calculations Valve P-P Mean Valve Index Valve Source Name Gradient Area Flow (cm2) Aortic 7 12 7 12 Snapshots Pre Cath Intra NCS Post Cath Vital Signs Time Heart Resp SPO2 etCO2 NIBP (mmHg) Rhythm Pain Sedation Rate (ipm) (%) (mmHg) Status Level (bpm) 8:32:31 56 18 96 34 136/79(109) SB 0 (11) 10(A) , No pain 8:36:33 51 18 99 36.8 129/73(105) SB 0 (11) 10(A) , No pain 8:40:32 48 17 98 33 121/68(96) SB 0 (11) 10(A) , No pain 8:44:34 47 16 98 9.7 119/65(94) SB 0 (11) 10(A) , No pain 8:48:36 45 15 97 21.8 118/64(88) SB 0 (11) 10(A) , No pain 8:53:12 46 17 98 37.6 116/63(89) SB 0 (11) 10(A) , No pain 8:57:16 45 14 97 42.1 109/58(81) SB 0 (11) 10(A) , No pain 9:01:54 45 13 96 18.8 105/61(78) SB 0 (11) 10(A) , No pain 9:05:56 45 14 97 24 106/58(82) SB 0 (11) 10(A) , No pain 9:09:58 45 15 96 36 104/58(83) SB 0 (11) 10(A) , No pain 9:13:55 45 14 97 11.2 104/62(79) SB 0 (11) 10(A) , No pain 9:17:57 45 16 97 15 104/58(79) SB 0 (11) 10(A) , No pain 9:22:56 0 Measuring SB 0 (11) 10(A) , No pain 9:23:35 0 No Cuff SB 0 (11) 10(A) , No pain Medications Time Medication Route Dose Verified Delivered Reason Notes Effectiveness by by 8:31:34 0.9% NaCl I.V. 100 Hardik Lor used for ml/hr Antonio Melendrez power and recovery superintendent 8:31:40 Oxygen etCO2 2 Hardik Lor used for Nasal l/min Antonio Melendrez procedure cannula RN 8:31:45 Lidocaine 2% added 20ml Hardik Hardik for local to vial Antonio Alvarez MD anesthetic field 8:31:49 Heparin Flush added 2 Hardik Hardik used for Bag to bags Antonio Alvarez MD procedure (1000units/500ml field NS) 8:41:17 Versed I.V. 2 mg Hardik Lor for sedation Antonio Melendrez RN 8:41:28 Fentanyl I.V. 50 Hardik Lor for sedation mcg Antonio Melendrez RN 8:48:51 Versed I.V. 2 mg Hardik Lor for sedation Antonio Melendrez RN 8:48:57 Fentanyl I.V. 50 Hardik Lor for sedation mcg Antonio Melendrez RN 9:11:30 Heparin Bolus I.V. 62879 Hardik Lor for verifi ed units Antonio Melnedrez anticoagulation with Dr. SURINDER Alvarez 9:16:10 Plavix P.O. 600 Hardik Lor for mg Antonio Melendrez antiplatelet RN therapy Procedure Log Time Note 7:47:38 Informed consent obtained and on chart 7:57:16 Procedure Status Elective Heart Cath (OP). 7:57:27 Plan of Care:Hemodynamics will remain stable., Cardiac rhythm will remain stable., Comfort level will be maintained., Respiratory function will remain adequate., Patient/ family verbilizes understanding of procedure., Procedure tolerated without complication., Recovers from procedure without complications.. 8:00:09 Stress Test: yes; abnormal INFERIOR AND LATERAL WALL 8:16:18 Lor Melendrez RN sent for patient. Start room use. 8:16:21 Time tracking: Regular hours (M-F 7:00 - 5:00) 8:16:49 Arrival Date: 06/26/2020 12:00:00 AM 8:25:22 Patient received from Pre/Post Procedure Room to CCL 2 Alert and oriented. Tansferred to table in Supine position. 8:25:42 Warm blankets applied, and michelle hugger turned on for patient comfort. 8:25:43 Correct patient and procedure confirmed by team. 8:25:44 ECG and BP/O2 sat monitors applied to patient. 8:30:53 Vital chart was started 8:30:54 Baseline sample Acquired. 8:30:58 Rhythm: sinus rhythm 8:31:01 Full Disclosure recording started 8:31:02 8:31:10 H&P Date Dictated: 06/26/2020 H&P Addendum completed by physician on day of procedure. (MUST COMPLETE FOR ALL OUTPATIENTS), New H&P dictated by physician.. 8:31:12 Pre-procedure instructions explained to patient. 8:31:13 Pre-op teaching completed and patient verbalized understanding. 8:31:20 Family in patients room. 8:31:25 Patient NPO since Midnight. 8:31:34 0.9% NaCl 100 ml/hr I.V. was administered by Lor Melendrez RN; used for procedure; Verbal order read back and verified. 8:31:39 Patient allergic to Other allergyNKDA 8:31:40 Oxygen 2 l/min etCO2 Nasal cannula was administered by Lor Melendrez RN; used for procedure; Verbal order read back and verified. 8:31:43 Is the patient allergic to Iodine/contrast media? No. 8:31:45 Lidocaine 2% 20ml vial added to field was administered by Hardik Alvarez MD; for local anesthetic; Verbal order read back and verified. 8:31:46 Was the patient premedicated? Yes 8:31:49 Heparin Flush Bag (1000units/500ml NS) 2 bags added to field was administered by Hardik Alvarez MD; used for procedure; Verbal order read back and verified. 8:31:49 Is patient on blood thinner?No 8:31:52 Patient diabetic? No. 8:31:58 ----Pre-sedation anethsthesia assessment.---- 8:32:02 Previous problem with sedation/anesthesia? No ? 8:32:04 Snore? Yes 8:32:07 Sleep apnea? No 8:32:09 Deviated septum? Unknown 8:32:11 Opens mouth fully? Yes 8:32:17 Sticks out tongue? Yes 8:32:21 Airway obstruction? No ? 8:32:24 Dentures? No ? 8:32:32 Pre procedure: right dorsailis pedis pulse 2+ Normal; easily identifiable; not easily obliterated 8:32:42 IV patent on arrival in left forearm with 0.9% NaCl at [facility]. 8:33:10 Lab Result : BUN 13 mg/dl 8:33:10 Lab Result : Creatinine 0.9 mg/dl 8:33:10 Lab Result : eGFR NONAFRICAN 88.72971 ml/min 8:33:10 Lab Result : Hemoglobin 15.5 g/dl 8:33:10 Lab Result : Hematocrit 42.9 % 8:33:17 Lab results completed and on chart. 8:33:25 Right groin area was prepped with chlora-prep and draped in sterile fashion 8:36:02 Alarms reviewed by R. N. 8:36:03 Sharps counted by scrub and verified by R.N. 8:36:10 Use device set Femoral Dx 8:36:12 ACIST Syringe (53043) opened to sterile field. 8:36:13 Bag Decanter (2002S) opened to sterile field. 8:36:14 Medline Cath Pack ([id number]) opened to sterile field. 8:36:16 ACIST Hand Control (78877) opened to sterile field. 8:36:17 ACIST Manifold (63912) opened to sterile field. 8:36:19 DIAGNOSTIC Multipack 5Fr catheter set (EM0927) opened to sterile field. 8:36:20 Tegaderm 4 x 4 (1626W) opened to sterile field. 8:36:21 SHEATH 5FR [place] (VPY000) opened to sterile field. 8:36:22 EMERALD Guide Wire (206-436) opened to sterile field. 8:37:50 Patient Height : 72 inches 8:37:52 Patient Weight : 246.92 lbs 8:40:26 Risk of Mortality: 0.1 8:40:29 Risk of blood transfusion: 0.1 8:40:33 Risk of MARLON: 0.4 8:40:35 Physician arrived 8:40:36 --------ALL STOP TIME OUT------ 8:40:37 Final Timeout: patient, procedure, and site verified with staff and physician. All members of the team are in agreement. 8:40:40 Right groin site verified by team. 8:40:47 Fire Safety Assessment: A--An alcohol-based skin anteseptic being used preoperatively., C--Open oxygen or nitrous oxide is being used., D--An ESU, laser, or fiber-optic light is being used. 8:40:52 Physical assessment completed. ASA score P 2 - A patient with mild systemic disease as per Hardik Alvarez MD. 8:41:17 Versed 2 mg I.V. was administered by Lor Melendrez RN; for sedation; Verbal order read back and verified. 8:41:22 2) 60-89 Mildly reduced kidney function, and other findings (as for stage 1) point to kidney disease. 8:41:28 Fentanyl 50 mcg I.V. was administered by Lor Melendrez RN; for sedation; Verbal order read back and verified. 8:41:28 Maximum allowable contrast dose (3.7 X eGFR X 0.75)244 ml. 8:41:34 Sedation plan: IV Moderate Sedation Medication:Versed, Fentanyl 8:42:01 Zero performed for pressure channel P1 8:48:51 Versed 2 mg I.V. was administered by Lor Melendrez RN; for sedation; Verbal order read back and verified. 8:48:57 Fentanyl 50 mcg I.V. was administered by Lor Melendrez RN; for sedation; Verbal order read back and verified. 8:50:56 Procedure started. 8:52:50 Local anesthetic to right femoral artery with Lidocaine 2% by Hardik Alvarez MD.INITIAL ACCESS ONLY 8:54:59 A 5 Fr sheath was inserted into the Right Femoral artery 8:55:22 A MULTIPACK JL 4.0 5Fr catheter was advanced over the wire and used for Left Coronary Angiography. 8:57:22 LCA angiography performed. 8:57:29 Injector settings: Ml/sec: 3, Volume: 6, 8:57:38 Catheter removed. 8:57:59 A DIAGNOSTIC JL 5 5Fr catheter ([id number]) was advanced over the wire and used for Left Coronary Angiography. 8:58:24 LCA angiography performed. 8:58:28 Injector settings: Ml/sec: 3, Volume: 6, 8:59:19 Catheter removed. 9:00:05 A MULTIPACK 3DRC 5Fr catheter was advanced over the wire and used for Right Coronary Angiography. 9:00:54 RCA angiography performed. 9:01:02 Injector settings: Ml/sec: 3, Volume: 6, 9:03:08 Catheter removed. 9:03:15 A MULTIPACK Pigtail 5 Fr catheter was advanced over the wire and used for LV Angiography. 9:03:23 LV gram done using EMMANUEL 9:03:28 Injector settings: Ml/sec: 5, Volume: 15, 9:04:09 EF : 55 % 9:04:23 LV hemodynamics recorded. 9:04:27 Catheter removed. 9:05:07 GUIDE 6FR JR 4.0 catheter ([id number]) opened to sterile field. 9:05:08 TUBING High Pressure Extension Tubing (Antonio) ([id number]) opened to sterile field. 9:05:09 SHEATH 6FR [place] (DEQ592) opened to sterile field. 9:05:13 INFLATOR Merit BasixCompak (GY2495) opened to sterile field. 9:05:25 BMW 300cm Baldwin 2 J wire (3237521C) opened to sterile field. 9:05:55 Proceeding to intervention. 9:06:13 Sheath upsized to a 6 Fr Short. 9:06:18 ACC Pre-intervention MONICA Flow is 3. 9:06:31 6 Fr JR4 guide catheter was inserted over the wire 9:09:22 Guide catheter removed. 9:09:48 GUIDE 6FR AR 1.0 catheter (AW8CU16) opened to sterile field. 9:11:00 6 Fr AL1 guide catheter was inserted over the wire 9:11:30 Heparin Bolus 01380 units I.V. was administered by Lor Melendrez RN; for anticoagulation; verified with Dr. Alvarez Verbal order read back and verified. 9:11:46 Pre PCI Site: Ak Chin mRCA has 80% stenosis. 9:13:00 OGU812 wire advanced. 9:13:16 Wire advanced across lesion. 9:15:49 Place stent Inflation Number: 1 A YOMAIRA RX 3.0 x 15 stent ([id number]) was prepped and advanced across the Mid RCA . The stent was deployed at 12 JIMBO for 0:18 (min:sec) . 9:16:10 Plavix 600 mg P.O. was administered by Lor Melendrez RN; for antiplatelet therapy; Verbal order read back and verified. 9:16:28 Stent catheter was removed intact over wire. 9:16:33 ACC Post-intervention MONICA Flow is 3. 9:16:44 Post PCI Site: Ak Chin mRCA has 0% stenosis. 9:17:01 Guide catheter removed. 9:17:03 Wire removed. 9:17:15 EXOSEAL 6Fr (EX600) opened to sterile field. 9:17:35 Sheath removed intact; hemostasis achieved with Exoseal to the Right Femoral artery. 9:18:07 Procedure ended.(Physican Out) 9:18:20 Fluoroscopy time 00.00 minutes. 9:18:26 Flurop Dose total: 1745 9:18:26 Fluoroscopy dose: 1745 mGy 9:18:38 Dose Area Product 97035 mGy/cm. 9:18:41 Contrast amount:Isovue 300 113ml. 9:18:46 Maximum allowable dose exceeded? No. 9:18:47 Sharps counted by scrub and verified by R.N. 9:18:49 Insertion/operative site no bleeding no hematoma. 9:18:54 Post-op/insertion site Right Femoral artery dressed using a 4 x 4 and Tegaderm. 9:19:01 Post-procedure physical assessment completed. ASA score P 2 - A patient with mild systemic disease as per Hardik Alvarez MD. 9:19:07 Post procedure rhythm: unchanged. 9:19:11 Estimated blood loss: 10 ml 9:19:12 Post procedure instruction explained to patient.Patient verbalizes understanding. 9:19:13 Patient needs reinforcement of post procedure teaching. 9:20:03 ACT drawn and resulted at >400-out of range seconds. (normal therapeutic range 180-240 seconds). 9:20:08 Procedure type changed to Cath procedure, Diagnostic procedure, LHC, LHC w/Coronaries, Sedation Charges, Moderate Sedation up to 30 minutes, PCI procedure, Coronary Stent, Coronary Stent Initial, Hemochron ACT Test 9:20:11 Procedure and supply charges have been captured, reviewed, submitted and are correct. 9:23:11 Procedure Complication : No complications 9:23:18 Vital chart was stopped 9:23:20 [facility] Findings: MVD- PCI performed (see procedure note) 9:23:26 Operative report dictated upon procedure completion. 9:23:27 See physician's report for complete and final results. 9:23:30 Report given to Pre/Post Procedure Room. 9:23:36 Patient transfered to Pre/Post Procedure Room with Stretcher. 9:23:39 Procedure ended. 9:23:39 Full Disclosure recording stopped 9:23:51 ACC-PCI Only Patient was given prescriptions, or instructed by Hardik Alvarez MD to start/continue the following medications upon discharge: Plavix 9:23:59 End room use (Document Last) Intervention Summary Intervention Notes Time ActionType Lesion and Equipment Used Action# Pressure Duration Attributes 9:15:49 Place stent Mid RCA YOMAIRA RX 3.0 x 1 12 00:18 15 stent ([id number]) Device Usage Item Name Manufacture Quantity Catalog [facility] Lot# / Number Charge Number Stock Stock Serial# Code ACIST Syringe Acist 1 88685 013381 572264 371112 20 (98729) Medical Systems Inc Bag Decanter Microtek 1 2001S 249590 25289 306314 5 (2001S) Medical Inc. Medline Cath Medline 1 [id number] 298375 68727 691217 5 Pack ([id number]) ACIST Hand Acist 1 49155 864607 029707 212366 5 Control Medical (35626) Systems Inc ACIST Manifold Acist 1 07230 195683 070948 903233 5 (48039) Medical Systems Inc DIAGNOSTIC Cardinal 1 RZ9395 821761 41147 311946 30 Multipack 5Fr Health catheter set (OY4607) Tegaderm 4 x 4 3M 1 1626W 288468 442057 124377 5 (1626W) SHEATH 5FR Terumo 1 CIX147 926708 298659 540810 5 [place] (RCS864) EMERALD Guide Cardinal 1 502-455 181194 467856 130347 5 Wire (502-455) Health MULTIPACK JL Cardinal 1 538384 5 4.0 5Fr Health catheter DIAGNOSTIC JL Cardinal 1 480316G 585425 631598 156931 5 5 5Fr catheter Health (873208G) MULTIPACK 3DRC Cardinal 1 295074 5 5Fr catheter Health MULTIPACK Cardinal 1 057559 5 Pigtail 5 Fr Health catheter GUIDE 6FR JR Medtronic 1 PL6FI46 652166 61799 964428 1 4.0 catheter (QS7XV33) TUBING High Merit 1 [id number] 894914 73157 650313 10 Pressure Medical Extension Tubing (Alvarez) (NN8636D) SHEATH 6FR Terumo 1 SVK474 027196 595366 206710 40 [place] (IVE922) INFLATOR Merit Merit 1 QI6432 936941 839778 512305 15 [facility] Medical (VR4181) BMW 300cm Cox 1 [id number] 301818 892007 761746 5 Baldwin 2 J Vascular wire (8029834W) GUIDE 6FR AR Medtronic 1 [id number] 781134 52273 868334 1 1.0 catheter (RQ8NC75) YOMAIRA RX 3.0 x Medtronic 1 [id number] 362049 3423333 611121 5 [id number] 15 stent ([id number]) EXOSEAL 6Fr Cardinal 1 EX600 773315 100870 459101 10 (EX600) Health Signature Audit [place] Stage Time Signature Unsigned Intra-Procedure 06/26/2020 Amber 9:24:21 AM Nato DODGE(R) (CV) Intra-Procedure 06/26/2020 Lor Melendrez 9:25:04 AM RN Intra-Procedure 06/26/2020 Hardik Alvarez MD 9:25:36 AM Signatures Performing Physician : Signature : Hardik Alvarez MD Date : Time : Monitor : Amber Signature : Nato RT Date : Time : Nurse : Lor Melendrez RN Signature : Date : Time : [facility] [address] [place] [address]
[~2020-06-26 06:32] MED LIST changes: +OMEPRAZOLE20 M1 PO; -PRILOSEC20 MG PO
[2020-06-26] MEDS ORDERED: HYDROCHLOROTHIA25 MG PO (07:17)
[2020-06-26 07:26] VITALS: BP 133/68; Ht 182.9 cm; Wt 112.3 kg
[2020-06-26 07:53] LABS: BASOPHILS 0.4 % (0-2); EOSINOPHILS 4.7 % (0-7); HEMATOCRIT 40.8 % (42.0-54.0); HEMOGLOBIN 13.8 g/dL (13.5-17.5); IMMATURE GRANULOCYTES 0.6 % (0-5); LYMPHOCYTES 32.6 % (15-50); MCH 31.5 pg (26.0-34.0); MCHC 33.8 g/dL (31.0-37.0); MCV 93.2 fL (80.0-100.0); MONOCYTES 12.3 % (2-11); NEUTROPHILS 49.4 % (40-80); PLATELET COUNT 152 10x3/uL (130-400); RBC 4.38 10x6/uL (4.20-6.10); RDW 12.3 % (11.5-14.5); WBC 7.9 10x3/uL (4.8-10.8)
[2020-06-26 08:21] LABS: ALT (SGPT) 57 U/L (10-68); CALC OSMOLALITY 270 mosm/kg (275-300); CALCIUM 8.1 mg/dL (8.5-10.1); CARBON DIOXIDE 27.9 mmol/L (21.0-32.0); CHLORIDE - SERUM 98 mmol/L (98-107); CHOL - HDL RATIO 2.1 ratio (2.3-4.9); CHOLESTEROL, TOTAL 107 mg/dL (0-200); CREATININE - SERUM 0.9 mg/dL (0.6-1.3); GLUCOSE 118 mg/dL (74-106); HDL CHOLESTEROL 51 mg/dL (32-96); LDL CHOLESTEROL 39 mg/dL (0-100); LDL-HDL RATIO 0.8 ratio (1.5-3.5); POTASSIUM - SERUM 3.7 mmol/L (3.5-5.1); SODIUM 135 mmol/L (136-145); TRIGLYCERIDE 89 mg/dL (30-200); UREA NITROGEN 13 mg/dL (7-18); eGFR NON AFRICAN AMERICAN 88 mL/min (90-120)
[2020-06-26] MEDS ORDERED: PLAVIX75 MG PO (09:31)
--- NOTE | 2020-06-26 09:40 | NUR ---
PT RECEIVED VIA STRETCHER FROM [employer] HELPER FOR RECOVERY. PT AWAKE BUT DROWSY. PT DENIES PAIN OR DISCOMFORT. IV PATENT INFUSING VIA L ARM PER ORDERS. PT PLACED ON CARDIAC MONITORS AND O2 VIA NC AT 2L. HR 50, BP 121/54, RR 17, SAT 97. R GROIN W 6FR EXOCELE, DRESSING CDI NO S/S HEMATOMA OR BLEEDING NOTED. LEG PINK AND WARM, PEDAL PULSES PALPABLE. PT INSTRUCTED TO KEEP HEAD FLAT ON PILLOW AND LEG STRAIGHT, HE VERBALIZED UNDERSTANDING. CALL LIGHT IN REACH, AT BS
--- NOTE | 2020-06-26 09:45 | NUR ---
R GROIN SOFT, DRESSING CDI NO S/S HEMATOMA NOTED. PT C/O HEARTBURN FROM PLAVIX, VSS. SIPS OF SPRITE GIVEN. CALL LIGHT IN REACH
--- NOTE | 2020-06-26 10:15 | NUR ---
R GROIN SOFT, DRESSING CDI NO S/S HEMATOMA NOTED. PT VOIDED 575CC CLEAR YELLOW URINE VIA URINAL. VSS. CALL LIGHT IN READS
--- NOTE | 2020-06-26 11:15 | NUR ---
PT RESTING COMFORTABLY, DENIES PAIN OR NEEDS AT THIS TIME. R GROIN SOFT, DRESSING REMAINS CDI NO S/S HEMATOMA OR BLEEDING NOTED. VSS, CALL LIGHT IN REACH
--- NOTE | 2020-06-26 11:45 | NUR ---
PT RESTING COMFORTABLY, DENIES PAIN OR DISCOMFORT. VSS. GROIN SOFT, DRESSING CDI NO S/S HEMATOMA OR BLEEDING.
--- NOTE | 2020-06-26 12:31 | NUR ---
R GROIN SOFT, DRESSING CDI NO S/S HEMATOMA OR BLEEDING NOTED. HOB ELEVATED. SANDWICH AND DRINK SERVED. VSS. AT BS, CALL LIGHT IN REACH
--- NOTE | 2020-06-26 13:15 | NUR ---
R GROIN SOFT, DRESSING CDI NO S/S HEMATOMA OR BLEEDING. IV REMOVED W CATH INTACT, MONITORS REMOVED. DISCHARGE INSTRUCTIONS REVIEWED W PT AND , BOTH VERBALIZED UNDERSTANDING. PT INSTRUCTED ON IMPORTANCE OF GETTING PLAVIX FILLED AND STARTING IT TOMORROW. PT UP TO DRESS FOR DISCHARGE
--- NOTE | 2020-06-26 13:29 | NUR ---
PT VOIDED 400 CC CLEAR YELLOW URINE VIA URINAL. PT THEN DISCHARGED VIA WC TO WAITING IN PRIVATE VEHICLE. PT HAD ALL BELONGINGS AND DISCHARGE PAPERWORK
== END 2020-06-26 13:30 | disposition home or self-care (01) ==
LOC: D.CATH 06:32
PROVIDERS: ATTEND Internal Medicine Cardiovascular Disease
DX: I25.119 Atherosclerotic heart disease of native coronary artery with unspecified angina pectoris (principal); R94.39 Abnormal result of other cardiovascular function study; I10 Essential (primary) hypertension; E78.5 Hyperlipidemia, unspecified; K21.9 Gastro-esophageal reflux disease without esophagitis
CPT/HCPCS: 93458; C9600

== ENCOUNTER 2020-07-04 08:24 | Day surgery (SDC) | payer MEDICARE, BC ==
[~2020-07-04] VITALS: Ht 182.9 cm; Wt 108.5 kg
--- NOTE | ~2020-07-04 | HEMODYNAMI ---
PATIENT:SHERON JAIMES MEDICAL RECORD: [id number] : 47 LOCATION:[facility] ADMISSION DATE: 07/04/20 Generatedon:07/04/202011:01 Patient name: SHERON JAIMES Patient #: [id number] SSN: : 1945 Date of study: 07/04/2020 Page: Of Hemodynamic Procedure Report Patient Data Patient Demographics Procedure consent was obtained First Name: SHERON Gender: Male Last Name: FIONA : 1945 [facility] Initial: SARAN Age: 74 year(s) Patient #: [id number] Race: SSN: [id number] Additional ID: [id number] Contact details Address: [facility] [address] State: [place] City: [place] Zip code: [address] Past Medical History Allergies Allergen Reaction Date Comments Reported Other allergy 06/26/2020 NKDA Other allergy 07/04/2020 none Admission Admission Data Admission Date: 07/04/2020 Admission Time: 8:24 Arrival Date: 07/04/2020 Arrival Time: 0:00 Admit Source: Other Insurance Payor: Private health insurance [facility] #: [id number] Height (in.): 71.65 BSA: 2.29 (m2) Height (cm.): 182 BMI: 32.6 (kg/m2) Weight (lbs.): 238.1 Weight (kg.): 108 Lab Results Lab Result Date: 07/04/2020 Lab Result Time: 0:00 Biochemistry Name Units Result Min Max BUN mg/dl 14 --(--*-)-- 7 18 Creatinine mg/dl 1 --(--*-)-- 0.6 1.3 eGFR ml/min 78 *-(----)-- 90 120 NONAFRICAN CBC Name Units Result Min Max Hemoglobin g/dl 14.5 --(*---)-- 13.5 17.5 Procedure Procedure Types Cath Procedure Diagnostic Procedure Sedation Charges Moderate Sedation up to 15 minutes PCI Procedure Coronary Stent Coronary Stent Initial Hemochron ACT Test Procedure Description Procedure Date Procedure Date: 07/04/2020 Procedure Start Time: 10:41 Procedure End Time: 11:00 Procedure Staff Name Function Hardik Alvarez MD Performing Physician Silvana Argueta RT Monitor Lor Melendrez RN Nurse Amber Dutton RT Scrub Indication CAD Procedure Data Cath Procedure Fluoroscopy Diagnostic fluoroscopy Total fluoroscopy Time: 3.6 time: 3.6 min min Diagnostic fluoroscopy Total fluoroscopy dose: 389 dose: 389 mGy mGy Contrast Material Contrast Material Type Amount (ml) Isovue 300 46 Entry Location Entry Primary Successful Side Size Upsize Upsize Entry Closure Succes sful Closure Location (Fr) 1 (Fr) 2 (Fr) Remarks Device Remarks Femoral Right 6 Fr Exoseal artery Short Estimated blood loss: 10 ml Procedure Complications No complications Procedure Medications Medication Administration Route Dosage 0.9% NaCl I.V. 100 ml/hr Oxygen etCO2 Nasal cannula 2 l/min Lidocaine 2% added to field 20 Heparin Flush Bag added to field 2 bags (1000units/500ml NS) Versed I.V. 2 mg Fentanyl I.V. 50 mcg Heparin Bolus I.V. 11528 units Fentanyl I.V. 50 mcg Hemodynamics Rest BSA: 2.29 (m2) HGB: 14.5 (g/dl) O2 Consumption: Estimated: 247.82 (ml/min) O2 Co nsumption indexed: Estimated:108.22 (ml/min/m) Heart Rate: 51 (bpm) Snapshots Pre Cath Intra NCS Post Cath Vital Signs Time Heart Resp SPO2 etCO2 NIBP (mmHg) Rhythm Pain Sedation Rate (ipm) (%) (mmHg) Status Level (bpm) 10:25:30 50 14 99 37.4 146/73(123) SB 0 (11) 10(A) , No pain 10:29:48 49 16 98 30.7 137/62(103) SB 0 (11) 10(A) , No pain 10:34:48 48 17 96 41.9 Measuring SB 0 (11) 10(A) , No pain 10:34:54 48 17 96 41.1 128/63(98) SB 0 (11) 10(A) , No pain 10:39:53 47 14 97 41.9 Measuring SB 0 (11) 10(A) , No pain 10:39:59 47 14 97 42.6 120/62(91) SB 0 (11) 10(A) , No pain 10:44:15 47 14 98 43.3 122/64(90) SB 0 (11) 10(A) , No pain 10:48:33 47 14 97 38.9 124/62(89) SB 0 (11) 9(A) , No pain 10:52:53 48 14 97 42.6 111/58(87) SB 0 (11) 9(A) , No pain 10:57:07 47 15 97 41.9 117/60(94) SB 0 (11) 10(A) , No pain Medications Time Medication Route Dose Verified Delivered Reason Notes Effectiveness by by 10:25:48 0.9% NaCl I.V. 100 Hardik Lor used for ml/hr Antonio Melendrez wool mixer 10:25:54 Oxygen etCO2 2 Hardik Lor used for Nasal l/min Antonio Melendrez procedure cannula RN 10:26:00 Lidocaine 2% added 20ml Hardik Hardik for local to vial Antonio Alvarez MD anesthetic field 10:26:04 Heparin Flush added 2 Hardik Hardik used for Bag to bags Antonio Alvarez MD procedure (1000units/500ml field NS) 10:36:30 Versed I.V. 2 mg Hardik Lor for sedation Antonio Melendrez RN 10:36:40 Fentanyl I.V. 50 Hardik Lor for sedation mcg Antonio Melednrez RN 10:42:15 Fentanyl I.V. 50 Hardik Lor for sedation mcg Antonio Melendrez RN 10:48:01 Heparin Bolus I.V. 23805 Hardik Lor for verif ied units Antonio Melendrez anticoagulation with Dr. SURINDER Alvarez Procedure Log Time Note 9:59:30 Arrival Date: 07/04/2020 12:00:00 AM 9:59:53 Admit Source: Other 9:59:59 Insurance Payor : Private health insurance 10:00:03 Patient Height : 71.65 inches 10:00:07 Patient Weight : 238.1 lbs 10:00:54 Lab Result : eGFR NONAFRICAN 78 ml/min 10:00:54 Lab Result : Hemoglobin 14.5 g/dl 10:00:54 Lab Result : BUN 14 mg/dl 10:00:54 Lab Result : Creatinine 1 mg/dl 10:01:00 Diagnostic Cath Status : Elective 10:01:24 Indication : CAD 10:01:38 Procedure Status Elective Heart Cath (OP). 10:16:21 Lor Melendrez RN sent for patient. Start room use. 10:16:23 Time tracking: Regular hours (M-F 7:00 - 5:00) 10:16:28 Plan of Care:Hemodynamics will remain stable., Cardiac rhythm will remain stable., Comfort level will be maintained., Respiratory function will remain adequate., Patient/ family verbilizes understanding of procedure., Procedure tolerated without complication., Recovers from procedure without complications.. 10:16:42 Patient received from Pre/Post Procedure Room to CCL 1 Alert and oriented. Tansferred to table in Supine position. 10:16:45 Signed procedure consent form obtained from patient. 10:16:46 Warm blankets applied, and michelle hugger turned on for patient comfort. 10:17:09 H&P Date Dictated: 06/26/2020 Within 30 days and on chart., H&P Addendum completed by physician on day of procedure. (MUST COMPLETE FOR ALL OUTPATIENTS). 10:17:13 Family in waiting room. 10:17:21 Patient NPO since Midnight. 10:17:36 Patient allergic to Other allergynone 10:17:38 Is the patient allergic to Iodine/contrast media? No. 10:17:39 Was the patient premedicated? Yes 10:17:41 Is patient on blood thinner?Yes 10:17:44 ACC The patient was administered the following blood thiners within the last 24 hours: ACCPlavix 10:18:01 Previous problem with sedation/anesthesia? No ? 10:18:40 Snore? No 10:18:41 Sleep apnea? No 10:18:49 Patient pain scale 0/10 ?. 10:18:59 IV patent on arrival in left antecubital with 0.9% NaCl at O. 10:19:03 Lab results completed and on chart. 10:19:10 Stress Test: no; N/A ? 10:19:24 Right groin area was prepped with chlora-prep and draped in sterile fashion 10:19:26 Alarms reviewed by Nora. N. 10:: Sharps counted by scrub and verified by R.N. 10:24:18 Correct patient and procedure confirmed by team. 10:24:18 ECG and BP/O2 sat monitors applied to patient. 10:24:20 Vital chart was started 10:24:22 Baseline sample Acquired. 10::27 Rhythm: sinus rhythm 10::28 Full Disclosure recording started 10:25:48 0.9% NaCl 100 ml/hr I.V. was administered by Lor Melendrez RN; used for procedure; Verbal order read back and verified. 10:25:54 Oxygen 2 l/min etCO2 Nasal cannula was administered by Lor Melendrez RN; used for procedure; Verbal order read back and verified. 10:26:00 Lidocaine 2% 20ml vial added to field was administered by Hardik Alvarez MD; for local anesthetic; Verbal order read back and verified. 10:26:04 Heparin Flush Bag (1000units/500ml NS) 2 bags added to field was administered by Hardik Alvarez MD; used for procedure; Verbal order read back and verified. 10:26:13 Use device set Femoral Dx 10:29:16 BMW 300cm [place] 2 J wire ([id number]) opened to sterile field. 10:29:17 INFLATOR Merit BasixCompak (KW2723) opened to sterile field. 10:29:18 TUBING High Pressure Extension Tubing (Antonio) ([id number]) opened to sterile field. 10:29:19 SHEATH 6FR [place] (MVE880) opened to sterile field. 10:29:20 EMERALD Guide Wire (680-020) opened to sterile field. 10:29:26 Tegaderm 4 x 4 (1626W) opened to sterile field. 10:29:28 ACIST Manifold (37139) opened to sterile field. 10:29:28 ACIST Hand Control (47372) opened to sterile field. 10:29:31 Medline Cath Pack ([id number]) opened to sterile field. 10:29:34 ACIST Syringe (16771) opened to sterile field. 10:29:34 Bag Decanter () opened to sterile field. 10:35:54 Physician arrived 10:35:55 --------ALL STOP TIME OUT------ 10:35:56 Final Timeout: patient, procedure, and site verified with staff and physician. All members of the team are in agreement. 10:35:58 Right groin site verified by team. 10:36:02 Fire Safety Assessment: A--An alcohol-based skin anteseptic being used preoperatively., C--Open oxygen or nitrous oxide is being used., D--An ESU, laser, or fiber-optic light is being used. 10:36:07 Physical assessment completed. ASA score P 2 - A patient with mild systemic disease as per Hardik Alvarez MD. 10:36:11 2) 60-89 Mildly reduced kidney function, and other findings (as for stage 1) point to kidney disease. 10:36:14 Maximum allowable contrast dose (3.7 X eGFR X 0.75)216 ml. 10:36:19 Sedation plan: IV Moderate Sedation Medication:Versed, Fentanyl 10:36:28 GUIDE 6FR XBLAD 3.5 catheter ([id number]) opened to sterile field. 10:36:30 Versed 2 mg I.V. was administered by Lor Melendrez RN; for sedation; Verbal order read back and verified. 10:36:40 Fentanyl 50 mcg I.V. was administered by Lor Melendrez RN; for sedation; Verbal order read back and verified. 10:41:23 Procedure started. 10:41:33 Local anesthetic to right femoral artery with Lidocaine 2% by Hardik Alvarez MD.INITIAL ACCESS ONLY 10:42:15 Fentanyl 50 mcg I.V. was administered by Lor Melendrez RN; for sedation; Verbal order read back and verified. 10:44:13 A 6 Fr Short sheath was inserted into the Right Femoral artery 10:44:17 J wire advanced. 10:44:37 Pre PCI Site: [place] pLAD has 80% stenosis. 10:44:54 6 Fr XBLAD3.5 guide catheter was inserted over the wire 10:45:11 Zero performed for pressure channel P1 10:46:02 Guide catheter removed. 10:46:12 6 Fr XBLAD4 guide catheter was inserted over the wire 10:48:01 Heparin Bolus 10037 units I.V. was administered by Lor Melendrez RN; for anticoagulation; verified with Dr. Alvarez Verbal order read back and verified. 10:48:02 BMW wire advanced. 10:51:38 Wire advanced across lesion. 10:54:30 Place stent Inflation Number: 1 A YOMAIRA OTW 3.5 x 18 stent ([id number]) was prepped and advanced across the Prox LAD 80. The stent was deployed at 11 JIMBO for 0:10 (min:sec) 0. 10:56:05 EXOSEAL 6Fr (EX600) opened to sterile field. 10:56:17 Wire removed. 10:56:22 Stent catheter was removed intact over wire. 10:56:25 Guide catheter removed. 10:56:37 Sheath removed intact; hemostasis achieved with Exoseal to the Right Femoral artery. 10:56:42 Procedure ended.(Physican Out) 10:57:16 Fluoroscopy time 03.60 minutes. 10:57:22 Flurop Dose total: 389 10:57:22 Fluoroscopy dose: 389 mGy 10:57:28 Dose Area Product 79796 mGy/cm. 10:57:39 Contrast amount:Isovue 300 46ml. 10:57:42 Maximum allowable dose exceeded? No. 10:57:43 Sharps counted by scrub and verified by R.N. 10:57:44 Insertion/operative site no bleeding no hematoma. 10:57:48 Post-op/insertion site Right Femoral artery dressed using a 4 x 4 and Tegaderm. 10:57:50 Post Procedure Pulses reassessed and unchanged 10:57:56 Post-procedure physical assessment completed. ASA score P 2 - A patient with mild systemic disease as per Hardik Alvarez MD. 10:58:07 Post procedure rhythm: sinus rhythm 10:58:13 Estimated blood loss: 10 ml 10:58:18 Post procedure instruction explained to patient.Patient verbalizes understanding. 10:58:36 Procedure type changed to Cath procedure, Diagnostic procedure, Sedation Charges, Moderate Sedation up to 15 minutes, PCI procedure, Coronary Stent, Coronary Stent Initial, Hemochron ACT Test 10:58:39 Procedure and supply charges have been captured, reviewed, submitted and are correct. 10:59:45 Procedure Complication : No complications 10:59:48 Vital chart was stopped 10:59:50 [facility] Findings: mild to moderate CAD (<70%) 10:59:59 Report given to Pre/Post Procedure Room. 11:00:02 Patient transfered to Pre/Post Procedure Room with Stretcher. 11:00:04 Procedure ended. 11:00:04 Full Disclosure recording stopped 11:00:07 End room use (Document Last) 11:00:19 ACC-PCI Only Patient was given prescriptions, or instructed by Hardik Alvarez MD to start/continue the following medications upon discharge: Plavix 11:01:12 ACT drawn and resulted at >400- out of range seconds. (normal therapeutic range 180-240 seconds). Intervention Summary Intervention Notes Time ActionType Lesion and Equipment Action# Pressure Duration Attributes Used 10:54:30 Place stent Prox LAD YOMAIRA OTW 3.5 1 11 00:10 x 18 stent ([id number]) Device Usage Item Name Manufacture Quantity Catalog Hospital Part Current Mini mal Lot# / Number Charge Number Stock Stock Serial# Code BMW 300cm Cox 1 [id number] 430041 305634 003779 5 [place] 2 J Vascular wire ([id number]) INFLATOR Merit 1 OZ4791 024531 918993 971264 15 Merit Medical BasixCompak (HZ2362) TUBING High Merit 1 [id number] 712530 45709 992029 10 Pressure Medical Extension Tubing (Alvarez) (LN1018M) SHEATH 6FR Terumo 1 OTD795 203190 306327 400536 40 [place] (PTF281) EMERALD Guide Cardinal 1 502-455 054864 066568 212296 5 Wire Health (502-455) Tegaderm 4 x 3M 1 1626W 674707 941793 826320 5 4 (1626W) ACIST Acist 1 26590 805595 088285 030004 5 Manifold Medical (06784) Systems Inc ACIST Hand Acist 1 44456 798828 918604 893542 5 Control Medical (11491) Systems Inc Medline Cath Medline 1 [id number] 706127 75588 053233 5 Pack ([id number]) ACIST Syringe Acist 1 95087 513463 737839 570119 20 (14857) Medical Systems Inc Bag Decanter Microtek 1 2002S 647644 82038 916427 5 (2001S) Medical Inc. GUIDE 6FR Cardinal 1 [id number] 799058 319721 391545 10 XBLAD 3.5 Health catheter (65452819) YOMAIRA OTW 3.5 Medtronic 1 [id number] 357589 1768654 188425 5 [id number] x 18 stent ([id number]) EXOSEAL 6Fr Cardinal 1 EX600 101127 645418 520439 10 (EX600) Health Signature Audit [place] Stage Time Signature Unsigned Intra-Procedure 07/04/2020 Silvana Argueta 11:00:35 AM RT(R) Intra-Procedure 07/04/2020 Lor Melendrez 11:01:11 AM RN Intra-Procedure 07/04/2020 Hardik Alvarze MD 11:01:34 AM [place] [place] [address]
[~2020-07-04 08:24] MED LIST changes: +HYDROCHLOROTHIA25 MG PO
[2020-07-04] MEDS ORDERED: PROTONIX40 MG PO (08:46)
[2020-07-04 08:51] VITALS: BP 150/69; Ht 182.9 cm; Wt 108.5 kg
[2020-07-04 09:13] LABS: BASOPHILS 0.3 % (0-2); EOSINOPHILS 4.9 % (0-7); HEMATOCRIT 41.9 % (42.0-54.0); HEMOGLOBIN 14.5 g/dL (13.5-17.5); IMMATURE GRANULOCYTES 0.6 % (0-5); LYMPHOCYTES 31.4 % (15-50); MCH 32.4 pg (26.0-34.0); MCHC 34.6 g/dL (31.0-37.0); MCV 93.7 fL (80.0-100.0); MEAN PLATELET VOLUME 9.2 fL (7.4-10.4); MONOCYTES 11.8 % (2-11); PLATELET COUNT 124 10x3/uL (130-400); RBC 4.47 10x6/uL (4.20-6.10); RDW 12.3 % (11.5-14.5)
[2020-07-04 09:30] LABS: CALC OSMOLALITY 267 mosm/kg (275-300); CALCIUM 8.5 mg/dL (8.5-10.1); CARBON DIOXIDE 27.8 mmol/L (21.0-32.0); CHLORIDE - SERUM 96 mmol/L (98-107); GLUCOSE 127 mg/dL (74-106); POTASSIUM - SERUM 3.7 mmol/L (3.5-5.1); SODIUM 132 mmol/L (136-145); UREA NITROGEN 14 mg/dL (7-18); eGFR NON AFRICAN AMERICAN 78 mL/min (90-120)
--- NOTE | 2020-07-04 11:10 | NUR ---
DR HASSAN IN ROOM AND SPOKE WITH REGARDING PLAN OF CARE AND PROCEDURE RESULTS. NO NEW ORDERS RECEIVED
--- NOTE | 2020-07-04 11:15 | NUR ---
PT RECEIVED FROM SCIENTIFIC SOFTWARE ENGINEER VIA STRETCHER FOR RECOVERY. PT AWAKE, ALERT, DENIES PAIN OR DISCOMFORT. IV PATENT INFUSING VIA L ARM PER ORDERS. R GROIN SOFT, DRESSING CDI NO S/S HEMATOMA OR BLEEDING. LEG PINK AND WARM, PEDAL PULSES PALPABLE. PT INSTRUCTED TO KEEP HEAD ON PILLOW AND LEG STRAIGHT, HE VERBALIZED UNDERSTANDING. PT PLACED ON CARDIAC MONITORS AND O2 VIA NC AT 2L. HR SB RATE 48, BP 136/65, SAT 97. CALL LIGHT IN REACH, AT BS.
--- NOTE | 2020-07-04 11:45 | NUR ---
PT RESTING COMFORTABLY, R GROIN SOFT, DRESSING CDI NO S/S HEMATOMA NOTED. SIPS OF SPRITE GIVEN. CALL LIGHT IN REACH. VSS AT PRESENT
--- NOTE | 2020-07-04 12:28 | NUR ---
PT RESTING COMFORTABLY, DENIES PAIN OR NEEDS AT THIS TIME. GROIN SOFT, NO S/S HEMATOMA. REMAINS AT BS, CALL LIGHT IN REACH
--- NOTE | 2020-07-04 13:00 | NUR ---
PT RESTING W/O COMPLAINTS. GROIN REMAINS SOFT, NO BLEEDING OR S/S HEMATOMA NOTED. VSS. CALL LIGHT IN REACH
--- NOTE | 2020-07-04 13:32 | NUR ---
PT DOING WELL, VOIDING W/O DIFFICULITY VIA URINAL. GROIN SOFT, DRESSING CDI NO S/S HEMATOMA OR BLEEDING NOTED. VSS. CALL LIGHT IN REACH
--- NOTE | 2020-07-04 13:59 | NUR ---
GROIN SOFT, NO S/S HEMATOMA. HOB ELEVATED, SANDWICH AND DRINK SERVED. VSS
--- NOTE | 2020-07-04 14:43 | NUR ---
GROIN SOFT, DRESSING CDI NO S/S HEMATOMA OR BLEEDING NOTED. DISCHARGE INSTRUCTIONS REVIEWED W PT AND , BOTH VERBALIZED UNDERSTANDING. IV REMOVED W CATH INTACT, MONITORS REMOVED. PT UP TO DRESS FOR DISCHARGE HOME.
--- NOTE | 2020-07-04 15:00 | NUR ---
PT DISCHARGED VIA WC TO WAITING IN PRIVATE VEHICLE. PT HAD ALL BELONGINGS AND DISCHARGE PAPERWORK
== END 2020-07-04 15:00 | disposition home or self-care (01) ==
LOC: D.CATH 08:24
PROVIDERS: ATTEND Internal Medicine Cardiovascular Disease
DX: R06.02 Shortness of breath (principal); I10 Essential (primary) hypertension; E78.5 Hyperlipidemia, unspecified; I25.119 Atherosclerotic heart disease of native coronary artery with unspecified angina pectoris; R94.39 Abnormal result of other cardiovascular function study

== ENCOUNTER → 2021-05-06 10:01 | Outpatient (CLI) | payer MEDICARE, BC ==
[2020-07-04 08:51] VITALS: BMI 32.4
--- NOTE | ~2021-05-06 | ST ---
PATIENT:SHERON JAIMES SARAN MEDICAL RECORD: [id number] SEX: M LOCATION:[facility] ORDER #: ADMISSION DATE: 05/06/21 AGE OF PATIENT: 75 REFERRING PHYSICIAN: INTERPRETING PHYSICIAN: DOMINIQUE KUMAR MD DATE OF SERVICE: 05/06/2021 NUCLEAR STRESS TEST FINDINGS: Gated is normal. Normal wall motion, normal wall thickening. Calculated EF 77%. SPECT imaging in the short axis view shows a fixed defect along the inferior wall with a significant reversibility shown down towards the inferior apex and true apical region. This confirmed the horizontal axis with a fixed inferior basilar and mid inferior fixed defect but with significant reversibility down farther towards the apex. Vertical axis: Vertical axis shows good uptake along lateral wall and septum. FINAL IMPRESSION: 1. Normal gated, normal wall motion, normal EF 77%. 2. Abnormal SPECT imaging with a mixed defect with significant reversibility along the inferior apex. The defect severity is moderate, defect size is large. FINAL RECOMMENDATION: In this gentleman with known history of coronary artery disease, particularly with intervention of the right coronary artery, the scan is worrisome for restenosis versus progression of [place] disease. We would consider diagnostic angiography if clinically indicated. TRANSINT:[id number] Voice Confirmation ID: [id number] DOCUMENT ID: [id number] DOMINIQUE KUMAR MD CC: [id number] DICTATION DATE: 05/06/21 170 BLOG WRITER: 05/07/21 0324 DEP CLI 05/06/21 [facility] [address] [place] [address]
[~2021-05-06 10:01] MED LIST changes: +PROTONIX40 MG PO
== END | disposition home or self-care (01) ==
LOC: D.HCCARDIO 10:01
PROVIDERS: ATTEND Internal Medicine Interventional Cardiology
DX: R07.9 Chest pain, unspecified (principal)

== ENCOUNTER 2021-05-12 06:57 | Day surgery (SDC) | payer MEDICARE, BC ==
[~2021-05-12] VITALS: Ht 182.9 cm; Wt 112.7 kg
--- NOTE | ~2021-05-12 | HEMODYNAMI ---
PATIENT:SHERON JAIMES MEDICAL RECORD: [id number] : 47 LOCATION:[facility] ADMISSION DATE: 05/12/21 Generatedon:110:06 Patient name: SHERON JAIMES Patient #: [id number] SSN: : 1945 Date of study: 05/12/2021 Page: Of Hemodynamic Procedure Report Patient Data Patient Demographics Procedure consent was obtained First Name: SHERON Gender: Male Last Name: FIONA : 1945 [facility] Initial: SARAN Age: 75 year(s) Patient #: [id number] Race: SSN: [id number] Additional ID: [id number] Contact details Address: [facility] [place] State: [place] City: [place] Zip code: [address] Past Medical History Allergies Allergen Reaction Date Comments Reported Other allergy 06/26/2020 NKDA Other allergy 07/04/2020 none Admission Admission Data Admission Date: 05/12/2021 Admission Time: 6:57 Admit Source: Other Procedure Procedure Types Cath Procedure Diagnostic Procedure LHC LH w/Coronaries Sedation Charges Moderate Sedation 10-24 minutes Procedure Description Procedure Date Procedure Date: 05/12/2021 Procedure Start Time: 9:44 Procedure End Time: 9:59 Procedure Staff Name Function Hardik Alvarez MD Performing Physician Arlene Mendenhall RT Monitor Dave Mojica RN Nurse Honey Stinson RT Scrub Indication Coronary risk factors Procedure Data Cath Procedure Fluoroscopy Diagnostic fluoroscopy Total fluoroscopy Time: 3.9 time: 3.9 min min Diagnostic fluoroscopy Total fluoroscopy dose: 662 dose: 662 mGy mGy Contrast Material Contrast Material Type Amount (ml) Isovue 300 69 Entry Location Entry Primary Successful Side Size Upsize Upsize Entry Closure Succes sful Closure Location (Fr) 1 (Fr) 2 (Fr) Remarks Device Remarks Femoral Right 5 Fr Exoseal artery Estimated blood loss: 5 ml Diagnostic catheters Device Type Used For End Catheter Placement MULTIPACK JL 4.0 5Fr Left Coronary catheter Angiography MULTIPACK 3DRC 5Fr Right Coronary catheter Angiography DIAGNOSTIC AL1 5Fr Right Coronary catheter ([id number]) Angiography MULTIPACK Pigtail 5 Fr LV Angiography catheter Procedure Complications No complications Procedure Medications Medication Administration Route Dosage 0.9% NaCl I.V. 100 ml/hr Oxygen etCO2 Nasal cannula 2 l/min Heparin Flush Bag added to field 2 bags (1000units/500ml NS) Lidocaine 2% added to field 20 Versed I.V. 1 mg Fentanyl I.V. 50 mcg Versed I.V. 1 mg Fentanyl I.V. 50 mcg Versed I.V. 1 mg Hemodynamics Rest Heart Rate: 51 (bpm) Pressure Samples Time Site Value (mmHg) Purpose Heart Use Rate(bpm) 9:55 LV 120/7,27 Snapshot 48 Gradients Valve Time Site Site Mean SEP/DFP Peak To Heart Use 1 2 (mmHg) (sec/min) Peak Rate (mmHg) (bpm) Aortic 9:56 LV AO 48 Snapshots Pre Cath Intra NCS Post Cath Vital Signs Time Heart Resp SPO2 etCO2 NIBP (mmHg) Rhythm Pain Sedation Rate (ipm) (%) (mmHg) Status Level (bpm) 9:28:56 51 31 97 33.1 150/76(126) SB 0 (11) 10(A) , No pain 9:33:20 49 11 96 35.3 148/70(111) SB 0 (11) 10(A) , No pain 9:37:42 48 14 94 41.3 129/62(102) SB 0 (11) 10(A) , No pain 9:42:56 47 12 95 13.5 122/63(96) SB 0 (11) 9(A) , No pain 9:47:09 47 15 96 12.7 123/60(103) SB 0 (11) 9(A) , No pain 9:51:28 47 14 96 0 121/65(98) SB 0 (11) 9(A) , No pain 9:55:41 48 16 96 36.8 124/60(95) SB 0 (11) 9(A) , No pain 10:00:00 48 18 96 34.6 129/64(100) SB 0 (11) 10(A) , No pain Medications Time Medication Route Dose Verified Delivered Reason Notes Effe ctiveness by by 9:30:33 0.9% NaCl I.V. 100 Hardik Dave used for ml/hr Antonio Mojica test developer 9:30:41 Oxygen etCO2 2 Hardik Dave used for Nasal l/min Antonio Mojica RN procedure cannula 9:30:51 Heparin Flush added 2 Hardik Hardik used for Bag to bags Antonio Alvarez MD procedure (1000units/500ml field NS) 9:31:00 Lidocaine 2% added 20ml Hardik Hardik for local to vial Antonio Alvarez MD anesthetic field 9:37:28 Versed I.V. 1 mg Hardik Dave for Antonio Mojica RN sedation 9:37:35 Fentanyl I.V. 50 Hardik Dave for mcg Antonio Mojica RN sedation 9:40:42 Versed I.V. 1 mg Hardik Dave for Antonio Mojica RN sedation 9:40:46 Fentanyl I.V. 50 Hardik Dave for mcg Antonio Mojica RN sedation 9:44:03 Versed I.V. 1 mg Hardik Dave for Antonio Mojica RN sedation Procedure Log Time Note 8:31:43 Informed consent obtained and on chart 8:31:53 Diagnostic Cath Status : Elective 8:32:11 Indication : Coronary risk factors 8:33:29 Admit Source: Other 8:33:31 ACC Patient presents with Stable Angina CCS Anginal Class 2--Slight limitation of ordinary activity. 8:33:34 Procedure Status Elective Heart Cath (OP). 8:33:36 Time tracking: Regular hours (M-F 7:00 - 5:00) 8:33:42 Plan of Care:Hemodynamics will remain stable., Cardiac rhythm will remain stable., Comfort level will be maintained., Respiratory function will remain adequate., Patient/ family verbilizes understanding of procedure., Procedure tolerated without complication., Recovers from procedure without complications.. 8:33:50 H&P Date Dictated: 05/01/2021 Within 30 days and on chart.. 8:33:52 Family in waiting room. 8:33:54 Patient NPO since Midnight. 8:42:16 Dave Mojica RN sent for patient. Start room use. 9:14:01 Patient received from Pre/Post Procedure Room to CCL 1 Alert and oriented. Tansferred to table in Supine position. 9:14:02 Warm blankets applied, and michelle hugger turned on for patient comfort. 9:14:03 Correct patient and procedure confirmed by team. 9:14:03 ECG and BP/O2 sat monitors applied to patient. 9:27:39 Vital chart was started 9:27:40 Baseline sample Acquired. 9:27:49 Rhythm: sinus rhythm 9:27:51 Full Disclosure recording started 9:27:59 Pre-procedure instructions explained to patient. 9:28:00 Pre-op teaching completed and patient verbalized understanding. 9:28:07 Is the patient allergic to Iodine/contrast media? No. 9:28:09 Was the patient premedicated? Yes 9:28:25 Is patient on blood thinner?No 9:28:27 Patient diabetic? No. 9:28:30 Previous problem with sedation/anesthesia? No ? 9:28:32 Snore? Yes 9:28:33 Sleep apnea? No 9:29:09 Deviated septum? No 9:29:10 Opens mouth fully? Yes 9:29:10 Sticks out tongue? Yes 9:29:14 Airway obstruction? No ? 9:29:17 Dentures? No ? 9:29:19 Pre procedure: right dorsailis pedis pulse 2+ Normal; easily identifiable; not easily obliterated 9:29:22 Pre procedure: left dorsailis pedis pulse 2+ Normal; easily identifiable; not easily obliterated 9:29:27 Patient pain scale 0/10 ?. 9:29:35 IV patent on arrival in right forearm with 0.9% NaCl at O. 9:29:37 Lab results completed and on chart. 9:29:43 Right groin area was prepped with chlora-prep and draped in sterile fashion 9:30:33 0.9% NaCl 100 ml/hr I.V. was administered by Dave Mojica RN; used for procedure; Verbal order read back and verified. 9:30:41 Oxygen 2 l/min etCO2 Nasal cannula was administered by Dave Mojica RN; used for procedure; Verbal order read back and verified. 9:30:51 Heparin Flush Bag (1000units/500ml NS) 2 bags added to field was administered by Hardik Alvarez MD; used for procedure; Verbal order read back and verified. 9:31:00 Lidocaine 2% 20ml vial added to field was administered by Hardik Alvarez MD; for local anesthetic; Verbal order read back and verified. 9:31:14 2) 60-89 Mildly reduced kidney function, and other findings (as for stage 1) point to kidney disease. 9:31:36 Maximum allowable contrast dose (3.7 X eGFR X 0.75)244 ml. 9:33:28 Risk of Mortality: 0.1 9:33:31 Risk of blood transfusion: 0.1 9:33:36 Risk of MARLON: 0.4 9:36:25 Alarms reviewed by R. N. 9:36:25 Sharps counted by scrub and verified by R.N. 9:36:26 Physician arrived 9:36:27 --------ALL STOP TIME OUT------ 9:36:28 Final Timeout: patient, procedure, and site verified with staff and physician. All members of the team are in agreement. 9:36:29 Right groin site verified by team. 9:36:32 Fire Safety Assessment: A--An alcohol-based skin anteseptic being used preoperatively., C--Open oxygen or nitrous oxide is being used., D--An ESU, laser, or fiber-optic light is being used. 9:36:38 Physical assessment completed. ASA score P 2 - A patient with mild systemic disease as per Hardik Alvarez MD. 9:36:41 Sedation plan: IV Moderate Sedation Medication:Versed, Fentanyl 9:37:28 Versed 1 mg I.V. was administered by Dave Mojica RN; for sedation; Verbal order read back and verified. 9:37:35 Fentanyl 50 mcg I.V. was administered by Dave Mojica RN; for sedation; Verbal order read back and verified. 9:40:07 Use device set Femoral Dx 9:40:09 ACIST Syringe (36866) opened to sterile field. 9:40:10 Bag Decanter () opened to sterile field. 9:40:10 Medline Cath Pack ([id number]) opened to sterile field. 9:40:11 ACIST Hand Control (16285) opened to sterile field. 9:40:12 ACIST Manifold (08636) opened to sterile field. 9:40:12 DIAGNOSTIC Multipack 5Fr catheter set ([id number]) opened to sterile field. 9:40:12 Tegaderm 4 x 4 (1626W) opened to sterile field. 9:40:14 SHEATH 5FR [place] ([id number]) opened to sterile field. 9:40:17 EMERALD Guide Wire (204-497) opened to sterile field. 9:40:42 Versed 1 mg I.V. was administered by Dave Mojica RN; for sedation; Verbal order read back and verified. 9:40:46 Fentanyl 50 mcg I.V. was administered by Dave Mojica RN; for sedation; Verbal order read back and verified. 9:44:03 Versed 1 mg I.V. was administered by Dave Mojica RN; for sedation; Verbal order read back and verified. 9:44:40 Procedure started. 9:44:43 Local anesthetic to right femoral artery with Lidocaine 2% by Hardik Alvarez MD.INITIAL ACCESS ONLY 9:45:06 A 5 Fr sheath was inserted into the Right Femoral artery 9:46:21 A MULTIPACK JL 4.0 5Fr catheter was advanced over the wire and used for Left Coronary Angiography. 9:48:19 LCA angiography performed. 9:48:21 Injector settings: Ml/sec: 3, Volume: 6, 9:49:34 Catheter removed. 9:49:41 A MULTIPACK 3DRC 5Fr catheter was advanced over the wire and used for Right Coronary Angiography. 9:51:06 Catheter removed. unable to cannulate vessel. 9:52:17 A DIAGNOSTIC AL1 5Fr catheter ([id number]) was advanced over the wire and used for Right Coronary Angiography. 9:52:59 RCA angiography performed. 9:53:01 Injector settings: Ml/sec: 3, Volume: 6, 9:53:11 Catheter removed. 9:53:17 A MULTIPACK Pigtail 5 Fr catheter was advanced over the wire and used for LV Angiography. 9:55:57 LV hemodynamics recorded. 9:55:58 LV gram done using EMMANUEL 9:56:00 Injector settings: Ml/sec: 5, Volume: 15, 9:56:10 EF : 55 % 9:56:55 Catheter removed. 9:57:20 Sheath removed intact; hemostasis achieved with Exoseal to the Right Femoral artery. 9:57:28 Procedure ended.(Physican Out) 9:57:37 Fluoroscopy time 03.90 minutes. 9:57:41 Fluoroscopy dose: 662 mGy 9:57:41 Flurop Dose total: 662 9:57:58 Dose Area Product 662 mGy/cm. 9:58:30 Contrast amount:Isovue 300 69ml. 9:58:38 Maximum allowable dose exceeded? No. 9:58:58 Sharps counted by scrub and verified by R.N. 9:58:59 Insertion/operative site no bleeding no hematoma. 9:59:08 Post-op/insertion site Right Femoral artery dressed using a 4 x 4 and Tegaderm. 9:59:11 Post right femoral artery:stable 9:59:12 Post Procedure Pulses reassessed and unchanged 9:59:16 Post procedure rhythm: unchanged. 9:59:18 Estimated blood loss: 5 ml 9:59:20 Post procedure instruction explained to patient.Patient verbalizes understanding. 9:59:20 Patient needs reinforcement of post procedure teaching. 9:59:37 Procedure type changed to Cath procedure, Diagnostic procedure, LHC, [facility] w/Coronaries, Sedation Charges, Moderate Sedation 10-24 minutes 9:59:38 Procedure and supply charges have been captured, reviewed, submitted and are correct. 9:59:43 Procedure Complication : No complications 9:59:46 Vital chart was stopped 9:59:48 [facility] Findings: mild to moderate CAD (<70%) 9:59:49 Operative report dictated upon procedure completion. 9:59:50 See physician's report for complete and final results. 9:59:52 Report given to Pre/Post Procedure Room. 9:59:55 Patient transfered to Pre/Post Procedure Room with Stretcher. 9:59:58 Procedure ended. 9:59:58 Full Disclosure recording stopped 10:00:03 End room use (Document Last) 10:01:31 EXOSEAL 5Fr (EX500) opened to sterile field. 10:02:23 MICROPUNCTURE 4FR [place] ([id number]) opened to sterile field. Device Usage Item Name Manufacture Quantity Catalog Hospital Part Current Minimal Lot# / Number Charge Number Stock Stock Serial# Code ACIST Syringe Acist 1 60737 [id number] 873982 [id number] 20 (66267) PowWow Inc Inc Bag Decanter Microtek 1 260891 11428 807520 5 () Medical Inc. Medline Cath Medline 1 [id number] 462454 04080 592320 5 Pack ([id number]) ACIST Hand Acist 1 65570 026638 055086 639599 5 Control Medical (78575) Systems Inc ACIST Acist 1 54537 786366 981150 173519 5 Manifold Medical (87166) Systems Inc DIAGNOSTIC Cardinal 1 EU9379 622116 56658 754340 30 Multipack 5Fr Health catheter set (YL9789) Tegaderm 4 x 3M 1 1626W 304009 332187 247069 5 4 (1626W) SHEATH 5FR Terumo 1 PCQ883 904693 411217 369577 5 [place] (SSW851) EMERALD Guide Cardinal 1 502-455 439046 066626 785971 5 Wire Health (502-455) MULTIPACK JL Cardinal 1 857306 5 4.0 5Fr Health catheter MULTIPACK Cardinal 1 303982 5 3DRC 5Fr Health catheter DIAGNOSTIC Cardinal 1 [id number] 371588 866135 785734 15 AL1 5Fr Health catheter ([id number]) MULTIPACK Cardinal 1 995155 5 Pigtail 5 Fr Health catheter EXOSEAL 5Fr Cardinal 1 EX500 844659 002174 205841 10 (EX500) Health MICROPUNCTURE [place] Medical 1 [id number] 240338 384203 278445 5 4FR [place] ([id number]) Signature Audit [place] Stage Time Signature Unsigned Intra-Procedure 05/12/2021 Arlene Mendenhall 10:02:23 AM RT(R) Intra-Procedure 05/12/2021 Dave Mojica RN 10:03:40 AM Intra-Procedure 05/12/2021 Hardik Alvarez MD 10:06:[address] [facility] [address] [place] [address]
[2021-05-12] MEDS ORDERED: CLARITIN 10 MG10 MG PO (08:06)
[2021-05-12] MEDS ORDERED: CO Q-10100 MG PO (08:08)
[2021-05-12] MEDS ORDERED: VITAMIN C500 M1 PO (08:08)
[2021-05-12] MEDS ORDERED: VITAMIN D325 MC1 PO (08:09)
[2021-05-12 08:31] VITALS: BP 147/79; Ht 182.9 cm; Wt 112.7 kg
[2021-05-12 08:48] LABS: BASOPHILS 0.9 % (0-2); EOSINOPHILS 5.3 % (0-7); HEMATOCRIT 42.9 % (42.0-54.0); HEMOGLOBIN 14.6 g/dL (13.5-17.5); MCH 31.6 pg (26.0-34.0); MCV 93.1 fL (80.0-100.0); MEAN PLATELET VOLUME 7.6 fL (7.4-10.4); MONOCYTES 11.9 % (2-11); NEUTROPHILS 51.9 % (40-80); RBC 4.61 10x6/uL (4.20-6.10); RDW 12.9 % (11.5-14.5)
[2021-05-12 08:52] LABS: PLATELET COUNT 150 10x3/uL (130-400)
[2021-05-12 09:01] LABS: ALT (SGPT) 60 U/L (10-68); CALC OSMOLALITY 276 mosm/kg (275-300); CALCIUM 8.6 mg/dL (8.5-10.1); CARBON DIOXIDE 28.8 mmol/L (21.0-32.0); CHLORIDE - SERUM 100 mmol/L (98-107); CHOL - HDL RATIO 1.8 ratio (2.3-4.9); CHOLESTEROL, TOTAL 105 mg/dL (0-200); CREATININE - SERUM 0.9 mg/dL (0.6-1.3); GLUCOSE 123 mg/dL (74-106); HDL CHOLESTEROL 58 mg/dL (32-96); LDL CHOLESTEROL 37 mg/dL (0-100); LDL-HDL RATIO 0.6 ratio (1.5-3.5); POTASSIUM - SERUM 3.8 mmol/L (3.5-5.1); SODIUM 137 mmol/L (136-145); TRIGLYCERIDE 53 mg/dL (30-200); UREA NITROGEN 17 mg/dL (7-18); eGFR NON AFRICAN AMERICAN 88 mL/min (90-120)
--- NOTE | 2021-05-12 10:15 | NUR ---
PT ARRIVES TO CATH RECOVERY ROOM 3. MONITORS APPLIED, ASSESSMENT COMPLETE. R GROIN EXOSEAL CDI WITH NO S/S OF HEMATOMA. PEDAL PULSES PRESENT. NO COMPLAINTS OF NAUSEA OR PAIN. AT BEDSIDE. CALL LIGHT WITHIN PT REACH.
--- NOTE | 2021-05-12 10:18 | NUR ---
SONYA AT BEDSIDE, UPDATE PROVIDED TO PT AND .
--- NOTE | 2021-05-12 10:30 | NUR ---
R GROIN EXOSEAL CDI WITH NO S/S OF HEMATOMA. PERIPHERAL PULSES PRESENT. NO C/O NAUSEA OR PAIN. AT BEDSIDE. DENIES NEEDS. CALL LIGHT WITHIN PT REACH.
--- NOTE | 2021-05-12 10:45 | NUR ---
R GROIN EXOSEAL CDI WITH NO S/S OF HEMATOMA. PERIPHERAL PULSES PRESENT. NO C/O PAIN OR NAUSEA. AT BEDSIDE. CALL LIGHT WITHIN PT REACH.
--- NOTE | 2021-05-12 10:57 | NUR ---
R GROIN EXOSEAL CDI WITH NO S/S OF HEMATOMA. PEDAL PULSES PRESENT. NO COMPLAINTS OF PAIN OR NAUSEA. HOB ELEVATED TO 30 DEGREES. SANDWICH TRAY AND BEVERAGE PROVIDED. AT BEDSIDE, CALL LIGHT WITHIN PT REACH.
--- NOTE | 2021-05-12 11:00 | NUR ---
R GROIN EXOSEAL CDI WITH NO S/S OF HEMATOMA. NO COMPLAINTS AT THIS TIME. CALL LIGHT WITHIN PT REACH.
--- NOTE | 2021-05-12 11:15 | NUR ---
R GROIN EXOSEAL CDI WITH NO S/S OF HEMATOMA. PEDAL PULSES PRESENT. NO COMPLAINTS. CALL LIGHT WITHIN PT REACH.
--- NOTE | 2021-05-12 11:31 | NUR ---
DISCHARGE INSTRUCTIONS PROVIDED TO PT AND , BOTH VERBALIZE UNDERSTANDING. PIV D/C'D WITH CATH TIP INTACT. PT ALLOWED TO GET DRESSING INDEPENDENTLY. USES BATHROOM INDEPENDENTLY.
--- NOTE | 2021-05-12 11:54 | NUR ---
DISCHARGED VIA WHEELCHAIR TO PRIVATE VEHICLE WITH ALL BELONGINGS AND PAPERWORK
== END 2021-05-12 11:55 | disposition home or self-care (01) ==
LOC: D.CATH 06:57
PROVIDERS: ATTEND Internal Medicine Cardiovascular Disease
DX: I25.118 Atherosclerotic heart disease of native coronary artery with other forms of angina pectoris (principal); R94.39 Abnormal result of other cardiovascular function study; R07.9 Chest pain, unspecified; I10 Essential (primary) hypertension; I34.0 Nonrheumatic mitral (valve) insufficiency; E78.5 Hyperlipidemia, unspecified